=== PATIENT | female | born 1945 | race Caucasian/White ===

== ENCOUNTER 2017-04-12 16:20 | Inpatient (IN) | payer MEDICARE, OTHER ==
[~2017-04-12] VITALS: Ht 162.6 cm; Wt 84.4 kg
[~2017-04-12 16:20] MED LIST: AMLO-512 PO; BENZ1TAB10 PO; CARB-37 PO; FERR-89 PO; FURO20 PO; HALOD50I IM; LEVO75 PO; LOSA100T29 PO; METO50 PO; OMEP20 PO; QUET300T2 PO; VALP250 PO
[2017-04-12 17:17] LABS: GLUCOSE,POINT OF CARE 124 MG/DL (70-110)
[2017-04-12] MEDS ORDERED: SODIUM CHLORIDE 0.9% 1,000 ML IV ONE ×3 (17:30→20:15)
[2017-04-12] MEDS ORDERED: ACETAMINOPHEN 1000 MG/ISO-OSM 100 ML IV ONE (17:30)
[2017-04-12 17:49] LABS: BASOPHILS # (AUTO) 0.09 K/uL (0.00-0.20); BASOPHILS % (AUTO) 0.6 % (0.0-2.0); EOSINOPHILS # (AUTO) 0.01 K/uL (0.00-0.70); EOSINOPHILS % (AUTO) 0.04 % (1.0-6.0); HEMATOCRIT 40.1 % (36-46); LYMPHOCYTES # (AUTO) 1.4 K/uL (1.0-4.8); LYMPHOCYTES % (AUTO) 9.1 % (22.0-44.0); MEAN CORPUSCULAR HEMOGLOBIN 28.9 pg (26.0-34.0); MEAN CORPUSCULAR HGB CONC 32.5 G/dL (31.0-37.0); MEAN CORPUSCULAR VOLUME 89 fL (80-100); MONOCYTES # (AUTO) 1.3 K/uL (0.1-1.0); MONOCYTES % (AUTO) 8.2 % (2.0-9.0); NEUTROPHILS # (AUTO) 12.8 K/uL (1.8-7.7); NEUTROPHILS % (AUTO) 82.1 % (40.0-70.0); PLATELET COUNT (AUTO) 219 K/uL (150-450); RED BLOOD CELL COUNT(AUTO) 4.51 MIL/uL (4.00-5.20); RED CELL DISTRIBUTION WIDTH 15.7 % (11.5-14.5); WHITE BLOOD COUNT (AUTO) 15.6 K/uL (4.5-11.0)
[2017-04-12 17:58] LABS: ANION GAP 11 mmol/L (8-16); CALCIUM, TOTAL 9.4 mg/dL (8.8-10.5); CARBON DIOXIDE 28 mmol/L (22-29); CHLORIDE 98 mmol/L (98-107); CREATININE 1.76 mg/dL (0.60-1.30); GLOMERULAR FILTR. RATE CALC 29 mL/min (>60); POTASSIUM 3.9 mmol/L (3.5-5.1); SODIUM SERUM 137 mmol/L (136-145); UREA NITROGEN, BLOOD 26 mg/dL (7-18)
[2017-04-12 18:01] LABS: PROTHROMBIN TIME 10.7 SEC (9.4-11.6)
[2017-04-12 18:03] LABS: RBC MORPHOLOGY COMMENT NORMAL RBC MORPH
[2017-04-12 18:10] LABS: LACTIC ACID 2.8 mmol/L (0.4-2.0)
[2017-04-12 18:23] LABS: AMMONIA < 10 umol/L (11-32)
[2017-04-12 18:24] LABS: ALANINE AMINOTRANSFERASE 11 U/L (12-78); ALBUMIN 3.1 g/dL (3.4-5.0); ASPARTATE AMINOTRANSFERASE 18 U/L (15-37); BILIRUBIN,TOTAL 0.3 mg/dL (0.1-1.0); CREATINE KINASE MB 5.8 ng/mL (0-5); CREATINE KINASE, TOTAL 152 U/L (26-192); TOTAL PROTEIN, SERUM 7.9 g/dL (6.4-8.2)
[2017-04-12 19:19] LABS: ADD UA MICROSCOPIC YES; APPEARANCE,URINE CLOUDY (CLEAR); GLUCOSE, URINE (UA) NEGATIVE (NEGATIVE); KETONES,URINE NEGATIVE (NEGATIVE); LEUKOCYTE ESTERASE ,URINE MODERATE (NEGATIVE); OCCULT BLOOD,URINE TRACE (NEGATIVE); PROTEIN,URINE TRACE (NEGATIVE)
[2017-04-12 19:26] LABS: SQUAMOUS EPITHELIAL CELL,UR Few /LPF (None Seen)
[2017-04-12 19:44] LABS: REFLEX LACTIC ACID? YES YES
[2017-04-12] MEDS ORDERED: CefTRIAXone 1 GM/DEXTROSE 50 ML IV ONE (19:45)
[2017-04-12] MEDS ORDERED: ONDANSETRON HCL 4 MG/2 ML VIAL IVP PRN (20:15)
[2017-04-12] MEDS ORDERED: ACETAMINOPHEN 325 MG TABLET PO PRN (20:15)
[2017-04-12 21:57] VITALS: BP 144/71
[2017-04-13] MEDS: HEPARIN SODIUM,PORCINE 5,000 UNITS/ML VIAL SQ SCH ×4 (00:17→23:59)
[2017-04-13] MEDS: POTASSIUM CHLORIDE 40 MEQ in SODIUM CHLORIDE 0.9% 1,000 ML IV SCH ×2 (00:18→18:11)
[2017-04-13 01:15] LABS: BILIRUBIN,TOTAL 0.2 mg/dL (0.1-1.0); CALCIUM, TOTAL 7.3 mg/dL (8.8-10.5); CREATININE 1.07 mg/dL (0.60-1.30); TOTAL PROTEIN, SERUM 5.2 g/dL (6.4-8.2)
[2017-04-13 01:19] LABS: POTASSIUM 7.2 mmol/L (3.5-5.1)
[2017-04-13 04:24] VITALS: BP 154/82
[2017-04-13] MEDS: ACETAMINOPHEN 325 MG TABLET PO PRN ×3 (04:44→12:22)
[2017-04-13 07:33] VITALS: BP 145/61
[2017-04-13 11:56] VITALS: BP 139/110
[2017-04-13] MEDS: CefTRIAXone SODIUM 1 GM/VIAL IM SCH (12:22)
[2017-04-13] MEDS: LIDOCAINE HCL/PF 1% 2 ML VIAL IM SCH (12:22)
[2017-04-13 15:59] VITALS: BP 104/70
[2017-04-13 19:29] VITALS: BP 154/73
[2017-04-13] MEDS: ACETAMINOPHEN/CODEINE 300-30 MG TABLET PO PRN (22:30)
[2017-04-14] VITALS (7 sets, daily range): BP systolic 145–166; BP diastolic 67–81
[2017-04-14] MEDS: POTASSIUM CHLORIDE 40 MEQ in SODIUM CHLORIDE 0.9% 1,000 ML IV SCH ×2 (05:22→21:01)
[2017-04-14] MEDS: HEPARIN SODIUM,PORCINE 5,000 UNITS/ML VIAL SQ SCH ×2 (08:04→15:38)
[2017-04-14] MEDS: LIDOCAINE HCL/PF 1% 2 ML VIAL IM SCH (08:05)
[2017-04-14] MEDS: CefTRIAXone SODIUM 1 GM/VIAL IM SCH (08:05)
[2017-04-14] MEDS: ACETAMINOPHEN/CODEINE 300-30 MG TABLET PO PRN (09:19)
[2017-04-14 10:55] LABS: BASOPHILS % (AUTO) 0.2 % (0.0-2.0); EOSINOPHILS % (AUTO) 2.9 % (1.0-6.0); HEMATOCRIT 33.2 % (36-46); HEMOGLOBIN 11.1 g/dL (12.0-16.0); LYMPHOCYTES # (AUTO) 1.8 K/uL (1.0-4.8); LYMPHOCYTES % (AUTO) 20.4 % (22.0-44.0); MEAN CORPUSCULAR HEMOGLOBIN 29.5 pg (26.0-34.0); MEAN CORPUSCULAR HGB CONC 33.5 G/dL (31.0-37.0); MEAN CORPUSCULAR VOLUME 88 fL (80-100); MONOCYTES % (AUTO) 11.1 % (2.0-9.0); NEUTROPHILS # (AUTO) 5.9 K/uL (1.8-7.7); NEUTROPHILS % (AUTO) 65.4 % (40.0-70.0); PLATELET COUNT (AUTO) 225 K/uL (150-450); RED BLOOD CELL COUNT(AUTO) 3.77 MIL/uL (4.00-5.20); RED CELL DISTRIBUTION WIDTH 15.4 % (11.5-14.5)
[2017-04-14 11:02] LABS: CALCIUM, TOTAL 8.7 mg/dL (8.8-10.5); CREATININE 1.07 mg/dL (0.60-1.30); POTASSIUM 4.5 mmol/L (3.5-5.1)
[2017-04-14] MEDS: AmLODIPine BESYLATE 10 MG TABLET PO SCH (11:52)
[2017-04-14] MEDS: ACETAMINOPHEN 325 MG TABLET PO PRN (15:38)
[2017-04-15] MEDS: HEPARIN SODIUM,PORCINE 5,000 UNITS/ML VIAL SQ SCH ×3 (00:57→16:04)
[2017-04-15 04:46] VITALS: BP 142/71
[2017-04-15] MEDS: AmLODIPine BESYLATE 10 MG TABLET PO SCH (08:08)
[2017-04-15] MEDS: CefTRIAXone SODIUM 1 GM/VIAL IM SCH (08:28)
[2017-04-15] MEDS: LIDOCAINE HCL/PF 1% 2 ML VIAL IM SCH (08:28)
[2017-04-15 09:14] VITALS: BP 149/89
[2017-04-15] MEDS: POTASSIUM CHLORIDE 40 MEQ in SODIUM CHLORIDE 0.9% 1,000 ML IV SCH (10:45)
[2017-04-15 11:58] VITALS: BP 161/80
[2017-04-15 12:22] VITALS: BP 155/80
[2017-04-15 17:31] VITALS: BP 136/75
[2017-04-15] MEDS ORDERED: CEFX1I IM (17:40)
[2017-04-15] MEDS ORDERED: ACET-784 PO (17:44)
== END 2017-04-15 19:30 | DRG 871 ==
LOC: EMS 16:23 → 5S 20:21
PROVIDERS: ADMIT Internal Medicine; ATTEND Internal Medicine
DX: A41.9 Sepsis, unspecified organism (principal); N17.0 Acute kidney failure with tubular necrosis; G93.41 Metabolic encephalopathy; E87.2 Acidosis; N39.0 Urinary tract infection, site not specified; E03.9 Hypothyroidism, unspecified; F31.9 Bipolar disorder, unspecified; G20 Parkinson's disease; I12.9 Hypertensive chronic kidney disease with stage 1 through stage 4 chronic kidney disease, or unspecified chronic kidney disease; E86.0 Dehydration; N18.9 Chronic kidney disease, unspecified; W19.XXXA Unspecified fall, initial encounter; E87.5 Hyperkalemia
CPT/HCPCS: 51702; 70450; 72125; 82962; 83605; 84132; 87040; 87086; 93005; 96365; 96375; 99285; J0131; J0696; J1644; J3480; J3490; J7030

== ENCOUNTER 2017-09-10 09:04 | Inpatient (IN) | payer MEDICARE, OTHER ==
[~2017-09-10] VITALS: Ht 160 cm; Wt 85.3 kg
[~2017-09-10 09:04] MED LIST changes: +ACET-784 PO; +CEFX1I IM; -LOSA100T29 PO
[2017-09-10] MEDS ORDERED: HYDROCODONE/ACETAMINOPHEN 5-325 MG TABLET PO ONE (10:30)
[2017-09-10 10:44] LABS: BASOPHILS % (AUTO) 0.1 % (0.0-2.0); EOSINOPHILS % (AUTO) 0 % (1.0-6.0); HEMATOCRIT 35.5 % (36-46); LYMPHOCYTES # (AUTO) 1.1 K/uL (1.0-4.8); LYMPHOCYTES % (AUTO) 11.5 % (22.0-44.0); MEAN CORPUSCULAR HEMOGLOBIN 28.8 pg (26.0-34.0); MEAN CORPUSCULAR HGB CONC 33.8 G/dL (31.0-37.0); MEAN CORPUSCULAR VOLUME 85 fL (80-100); MONOCYTES # (AUTO) 0.4 K/uL (0.1-1.0); MONOCYTES % (AUTO) 4.5 % (2.0-9.0); NEUTROPHILS # (AUTO) 8.1 K/uL (1.8-7.7); NEUTROPHILS % (AUTO) 83.9 % (40.0-70.0); PLATELET COUNT (AUTO) 214 K/uL (150-450); RED BLOOD CELL COUNT(AUTO) 4.17 MIL/uL (4.00-5.20); RED CELL DISTRIBUTION WIDTH 14.5 % (11.5-14.5); WHITE BLOOD COUNT (AUTO) 9.6 K/uL (4.5-11.0)
[2017-09-10 10:50] LABS: APPEARANCE,URINE CLEAR (CLEAR); GLUCOSE, URINE (UA) NEGATIVE (NEGATIVE); KETONES,URINE NEGATIVE (NEGATIVE); LEUKOCYTE ESTERASE ,URINE NEGATIVE (NEGATIVE); OCCULT BLOOD,URINE NEGATIVE (NEGATIVE); PROTEIN,URINE NEGATIVE (NEGATIVE)
[2017-09-10 10:51] LABS: ADD UA MICROSCOPIC NO
[2017-09-10 10:57] LABS: INR 0.9 (0.9-1.1)
[2017-09-10 11:00] LABS: ALBUMIN 3.5 g/dL (3.4-5.0); BILIRUBIN,TOTAL 0.1 mg/dL (0.1-1.0); CALCIUM, TOTAL 9.3 mg/dL (8.8-10.5); CREATININE 1.2 mg/dL (0.60-1.30); POTASSIUM 4.6 mmol/L (3.5-5.1); TOTAL PROTEIN, SERUM 8.1 g/dL (6.4-8.2)
[2017-09-10] MEDS ORDERED: SODIUM CHLORIDE 0.9% 1,000 ML IV ONE ×3 (11:19→11:30)
[2017-09-10 11:23] LABS: THYROID STIMULATING HORMONE 1.86 uIU/mL (0.36-3.74)
[2017-09-10] MEDS ORDERED: MORPHINE SULFATE 2 MG/ML SYRINGE IVP PRN (11:30)
[2017-09-10] MEDS ORDERED: ONDANSETRON HCL 4 MG/2 ML VIAL IVP PRN (11:30)
[2017-09-10] MEDS ORDERED: BISACODYL 10 MG RECTAL RECTAL SUPPOSITORY PR PRN (11:30)
[2017-09-10] MEDS ORDERED: HYDROCODONE/ACETAMINOPHEN 5-325 MG TABLET PO PRN (11:30)
[2017-09-10 13:23] VITALS: BP 116/81
[2017-09-10 13:25] VITALS: BP 132/69
[2017-09-10 16:15] VITALS: BP 128/81
[2017-09-10] MEDS: HEPARIN SODIUM,PORCINE 5,000 UNITS/ML VIAL SQ SCH (16:33)
[2017-09-10] MEDS: DEXTROSE 5%-WATER 1,000 ML IV SCH (16:34)
[2017-09-10 20:13] VITALS: BP 123/53
[2017-09-10] MEDS: METOPROLOL TARTRATE 50 MG TABLET PO SCH (20:27)
[2017-09-10] MEDS: DOCUSATE SODIUM 100 MG CAPSULE PO SCH (20:27)
[2017-09-10] MEDS: CARBIDOPA/LEVODOPA 10-100 MG TABLET PO SCH (20:27)
[2017-09-10 23:38] VITALS: BP 125/65
[2017-09-11] MEDS: HEPARIN SODIUM,PORCINE 5,000 UNITS/ML VIAL SQ SCH ×4 (00:39→23:14)
[2017-09-11 06:17] VITALS: BP 133/64
[2017-09-11] MEDS: LEVOTHYROXINE SODIUM 75 MCG TABLET PO SCH (06:20)
[2017-09-11 06:43] LABS: CALCIUM, TOTAL 8.8 mg/dL (8.8-10.5); CREATININE 1.22 mg/dL (0.60-1.30); PHOSPHORUS 3.6 mg/dL (2.5-4.9); POTASSIUM 4.6 mmol/L (3.5-5.1); THYROID STIMULATING HORMONE 5.58 uIU/mL (0.36-3.74)
[2017-09-11] MEDS: MAGNESIUM HYDROXIDE SUSPENSION 30 ML UDCUP PO PRN (06:52)
[2017-09-11 07:31] VITALS: BP 136/63
[2017-09-11] MEDS: METOPROLOL TARTRATE 50 MG TABLET PO SCH ×2 (08:05→20:06)
[2017-09-11] MEDS: FERROUS SULFATE 325 MG EC TABLET PO SCH (08:05)
[2017-09-11] MEDS: PANTOPRAZOLE SODIUM 40 MG DR TABLET PO SCH (08:05)
[2017-09-11] MEDS: BENZTROPINE MESYLATE 1 MG TABLET PO SCH (08:05)
[2017-09-11] MEDS: DOCUSATE SODIUM 100 MG CAPSULE PO SCH ×2 (08:05→20:01)
[2017-09-11] MEDS: AmLODIPine BESYLATE 10 MG TABLET PO SCH (08:05)
[2017-09-11] MEDS: CARBIDOPA/LEVODOPA 10-100 MG TABLET PO SCH ×3 (08:06→20:01)
[2017-09-11 11:05] VITALS: BP 113/59
[2017-09-11] MEDS: DEXTROSE 5%-WATER 1,000 ML IV SCH (11:34)
[2017-09-11 15:18] VITALS: BP 124/62
[2017-09-11 19:34] VITALS: BP 103/63
[2017-09-11] MEDS: ACETAMINOPHEN 325 MG TABLET PO PRN (22:24)
[2017-09-11 23:22] VITALS: BP 127/61
[2017-09-12 05:16] VITALS: BP 140/69
[2017-09-12] MEDS: LEVOTHYROXINE SODIUM 75 MCG TABLET PO SCH (05:40)
[2017-09-12 06:43] LABS: CALCIUM, TOTAL 9.5 mg/dL (8.8-10.5); CREATININE 1.09 mg/dL (0.60-1.30); PHOSPHORUS 2.7 mg/dL (2.5-4.9); POTASSIUM 4.2 mmol/L (3.5-5.1)
[2017-09-12] MEDS: ACETAMINOPHEN 325 MG TABLET PO PRN ×2 (06:49→20:43)
[2017-09-12 07:20] VITALS: BP 141/69
[2017-09-12] MEDS: FERROUS SULFATE 325 MG EC TABLET PO SCH (08:57)
[2017-09-12] MEDS: DOCUSATE SODIUM 100 MG CAPSULE PO SCH ×2 (08:57→20:43)
[2017-09-12] MEDS: BENZTROPINE MESYLATE 1 MG TABLET PO SCH (08:57)
[2017-09-12] MEDS: PANTOPRAZOLE SODIUM 40 MG DR TABLET PO SCH (08:57)
[2017-09-12] MEDS: CARBIDOPA/LEVODOPA 10-100 MG TABLET PO SCH ×3 (08:57→20:44)
[2017-09-12] MEDS: HEPARIN SODIUM,PORCINE 5,000 UNITS/ML VIAL SQ SCH ×3 (08:57→23:28)
[2017-09-12] MEDS: METOPROLOL TARTRATE 50 MG TABLET PO SCH ×2 (08:57→20:44)
[2017-09-12] MEDS: AmLODIPine BESYLATE 10 MG TABLET PO SCH (08:57)
[2017-09-12] MEDS: DEXTROSE 5%-WATER 1,000 ML IV SCH (08:58)
[2017-09-12 11:05] VITALS: BP 135/72
[2017-09-12 15:16] VITALS: BP 113/64
[2017-09-12] MEDS: MAGNESIUM HYDROXIDE SUSPENSION 30 ML UDCUP PO PRN (16:34)
[2017-09-12 20:52] VITALS: BP 132/65
[2017-09-13 00:17] VITALS: BP 121/56
[2017-09-13 04:37] VITALS: BP 137/63
[2017-09-13] MEDS: LEVOTHYROXINE SODIUM 75 MCG TABLET PO SCH (05:10)
[2017-09-13] MEDS: DEXTROSE 5%-WATER 1,000 ML IV SCH (05:11)
[2017-09-13 07:11] LABS: EOSINOPHILS % (AUTO) 2.5 % (1.0-6.0); HEMATOCRIT 33.6 % (36-46); HEMOGLOBIN 11.1 g/dL (12.0-16.0); LYMPHOCYTES # (AUTO) 2.8 K/uL (1.0-4.8); LYMPHOCYTES % (AUTO) 27.9 % (22.0-44.0); MEAN CORPUSCULAR HEMOGLOBIN 28.8 pg (26.0-34.0); MEAN CORPUSCULAR HGB CONC 33.2 G/dL (31.0-37.0); MEAN CORPUSCULAR VOLUME 87 fL (80-100); MONOCYTES % (AUTO) 9.7 % (2.0-9.0); NEUTROPHILS # (AUTO) 5.8 K/uL (1.8-7.7); NEUTROPHILS % (AUTO) 58.9 % (40.0-70.0); PLATELET COUNT (AUTO) 272 K/uL (150-450); RED BLOOD CELL COUNT(AUTO) 3.87 MIL/uL (4.00-5.20); RED CELL DISTRIBUTION WIDTH 15.5 % (11.5-14.5); WHITE BLOOD COUNT (AUTO) 9.9 K/uL (4.5-11.0)
[2017-09-13 07:41] VITALS: BP 138/69
[2017-09-13] MEDS: DOCUSATE SODIUM 100 MG CAPSULE PO SCH (07:43)
[2017-09-13] MEDS: HEPARIN SODIUM,PORCINE 5,000 UNITS/ML VIAL SQ SCH (07:43)
[2017-09-13] MEDS: AmLODIPine BESYLATE 10 MG TABLET PO SCH (07:43)
[2017-09-13] MEDS: METOPROLOL TARTRATE 50 MG TABLET PO SCH (07:43)
[2017-09-13] MEDS: PANTOPRAZOLE SODIUM 40 MG DR TABLET PO SCH (07:43)
[2017-09-13] MEDS: CARBIDOPA/LEVODOPA 10-100 MG TABLET PO SCH (07:43)
[2017-09-13] MEDS: FERROUS SULFATE 325 MG EC TABLET PO SCH (07:43)
[2017-09-13] MEDS: BENZTROPINE MESYLATE 1 MG TABLET PO SCH (07:43)
[2017-09-13 07:54] LABS: CALCIUM, TOTAL 9.5 mg/dL (8.8-10.5); CREATININE 1.11 mg/dL (0.60-1.30); POTASSIUM 4.8 mmol/L (3.5-5.1)
[2017-09-13 11:47] VITALS: BP 134/64
[2017-09-13 15:14] VITALS: BP 144/60
== END 2017-09-13 15:33 | disposition home or self-care (01) | DRG 643 ==
LOC: EMS 09:05 → 5N 12:51
PROVIDERS: ADMIT Internal Medicine; ATTEND Internal Medicine
DX: E22.2 Syndrome of inappropriate secretion of antidiuretic hormone (principal); G93.41 Metabolic encephalopathy; G20 Parkinson's disease; D64.9 Anemia, unspecified; W01.0XXA Fall on same level from slipping, tripping and stumbling without subsequent striking against object, initial encounter; E03.9 Hypothyroidism, unspecified; I12.9 Hypertensive chronic kidney disease with stage 1 through stage 4 chronic kidney disease, or unspecified chronic kidney disease; I44.30 Unspecified atrioventricular block; N18.9 Chronic kidney disease, unspecified; Z88.8 Allergy status to other drugs, medicaments and biological substances
CPT/HCPCS: 51701; 70450; 72125; 82533; 83735; 83930; 83935; 84100; 84295; 84300; 84439; 84443; 93005; 96360; 96361; 97161; 99285; J1644; J7030; J7060

== ENCOUNTER 2018-07-30 10:53 | Inpatient (IN) | payer MEDICARE, MEDICAID ==
[~2018-07-30] VITALS: Ht 165.1 cm; Wt 77.0 kg
[~2018-07-30 10:53] MED LIST changes: -CEFX1I IM; -HALOD50I IM
[2018-07-30] MEDS ORDERED: LOSA50TA25 PO (10:58)
[2018-07-30 11:45] LABS: BASOPHILS % (AUTO) 0.6 % (0.0-2.0); EOSINOPHILS % (AUTO) 1.5 % (1.0-6.0); HEMATOCRIT 33.5 % (36-46); LYMPHOCYTES # (AUTO) 0.6 K/uL (1.0-4.8); LYMPHOCYTES % (AUTO) 14.5 % (22.0-44.0); MEAN CORPUSCULAR HEMOGLOBIN 27.7 pg (26.0-34.0); MEAN CORPUSCULAR HGB CONC 32.9 G/dL (31.0-37.0); MEAN CORPUSCULAR VOLUME 84 fL (80-100); MONOCYTES # (AUTO) 0.4 K/uL (0.1-1.0); NEUTROPHILS # (AUTO) 3.2 K/uL (1.8-7.7); NEUTROPHILS % (AUTO) 73.4 % (40.0-70.0); PLATELET COUNT (AUTO) 279 K/uL (150-450); RED BLOOD CELL COUNT(AUTO) 3.98 MIL/uL (4.00-5.20)
[2018-07-30 12:08] LABS: ANION GAP 7 mmol/L (8-16); CALCIUM, TOTAL 9.5 mg/dL (8.8-10.5); CARBON DIOXIDE 29 mmol/L (22-29); CHLORIDE 99 mmol/L (98-107); GLOMERULAR FILTR. RATE CALC 55 mL/min (>60); GLUCOSE,RANDOM 97 mg/dL (70-110); POTASSIUM 3.6 mmol/L (3.5-5.1); SODIUM SERUM 135 mmol/L (136-145); UREA NITROGEN, BLOOD 15 mg/dL (7-18)
[2018-07-30 12:12] LABS: ALANINE AMINOTRANSFERASE 15 U/L (12-78); ALBUMIN 3.3 g/dL (3.4-5.0); ALKALINE PHOSPHATASE 66 U/L (46-116); ASPARTATE AMINOTRANSFERASE 15 U/L (15-37); BILIRUBIN,TOTAL 0.3 mg/dL (0.1-1.0); TOTAL PROTEIN, SERUM 7.8 g/dL (6.4-8.2); VALPROIC ACID 88 mcg/mL (50-100)
[2018-07-30 13:28] LABS: APPEARANCE,URINE CLEAR (CLEAR); BILIRUBIN,URINE NEGATIVE (NEGATIVE); GLUCOSE, URINE (UA) NEGATIVE (NEGATIVE); KETONES,URINE NEGATIVE (NEGATIVE); LEUKOCYTE ESTERASE ,URINE SMALL (NEGATIVE); NITRATE,URINE NEGATIVE (NEGATIVE); OCCULT BLOOD,URINE NEGATIVE (NEGATIVE); PROTEIN,URINE NEGATIVE (NEGATIVE); UROBILINOGEN,URINE 0.2 mg/dL (<=1.0)
[2018-07-30 13:34] LABS: AMPHET/METH SCREEN,URINE NEGATIVE (NEGATIVE); BARBITURATE SCREEN, URINE NEGATIVE (NEGATIVE); BENZODIAZEPINES SCREEN,URINE NEGATIVE (NEGATIVE); CANNABINOID SCREEN,URINE NEGATIVE (NEGATIVE); COCAINE SCREEN,URINE NEGATIVE (NEGATIVE); METHADONE SCREEN, URINE NEGATIVE (NEGATIVE); OPIATE SCREEN,URINE NEGATIVE (NEGATIVE); PHENCYCLIDINE SCREEN,URINE NEGATIVE (NEGATIVE)
[2018-07-30 13:39] LABS: BACTERIA,URINE Rare /HPF (None Seen); RBC,URINE None Seen /HPF (0-2); SQUAMOUS EPITHELIAL CELL,UR Rare /LPF (None Seen); WBC,URINE 0-2 /HPF (0-5)
[2018-07-30] MEDS ORDERED: LIDOCAINE/PF 1% 2 ML VIAL IM ONE (15:00)
[2018-07-30] MEDS ORDERED: CefTRIAXone SODIUM 1 GM/VIAL IM ONE (15:00)
[2018-07-30] MEDS ORDERED: HALOPERIDOL DECANOATE 50 MG/ML VIAL IM ONE (16:45)
[2018-07-30] MEDS ORDERED: LORazepam 1 MG TABLET PO PRN (17:45)
[2018-07-30] MEDS ORDERED: ACETAMINOPHEN 325 MG TABLET PO ONE (20:00)
[2018-07-30] MEDS ORDERED: DOCUSATE SODIUM 100 MG CAPSULE PO PRN (23:30)
[2018-07-30] MEDS ORDERED: PETROLATUM,WHITE 71 GM JELLY TP PRN (23:30)
[2018-07-30] MEDS ORDERED: ONDANSETRON HCL 4 MG TABLET PO PRN (23:30)
[2018-07-30] MEDS ORDERED: LOPERAMIDE HCL 2 MG CAPSULE PO PRN (23:30)
[2018-07-30] MEDS ORDERED: MAG HYDROX/AL HYDROX/SIMETH ES 30 ML SUSPENSION UDCUP PO PRN (23:30)
[2018-07-30] MEDS ORDERED: ALBUTEROL SULFATE HFA 90 MCG/PUFF 8 GM INHALER IH PRN (23:30)
[2018-07-30] MEDS ORDERED: CloNIDine HCL 0.1 MG TABLET PO PRN (23:30)
[2018-07-30] MEDS ORDERED: GuaiFENesin/D-METHORPHAN [SUGAR-FREE] 200-20MG/10 ML SYRUP UDCUP PO PRN (23:30)
[2018-07-30] MEDS ORDERED: MAGNESIUM HYDROXIDE SUSPENSION 30 ML UDCUP PO PRN (23:30)
[2018-07-31 03:49] VITALS: BP 141/96
[2018-07-31 09:02] VITALS: BP 133/67
[2018-07-31] MEDS: IBUPROFEN 400 MG TABLET PO PRN (09:04)
[2018-07-31] MEDS: QUEtiapine FUMARATE 100 MG TABLET PO PRN (10:40)
[2018-07-31] MEDS: HALOPERIDOL 5 MG TABLET PO SCH (17:01)
[2018-07-31] MEDS: METOPROLOL TARTRATE 50 MG TABLET PO SCH (17:01)
[2018-07-31 17:30] VITALS: BP 135/73
[2018-07-31] MEDS: CARBIDOPA/LEVODOPA 10-100 MG TABLET PO SCH (21:18)
[2018-08-01 05:13] VITALS: BP 107/76
[2018-08-01 06:39] LABS: HEMOGLOBIN A1C 5.3 % (4.5-6.2)
[2018-08-01] MEDS: LEVOTHYROXINE SODIUM 75 MCG TABLET PO SCH (07:11)
[2018-08-01] MEDS: FERROUS SULFATE 325 MG EC TABLET PO SCH (07:12)
[2018-08-01 07:18] LABS: CHOL/HDL RATIO 2.5 (3.9-5.7); THYROID STIMULATING HORMONE 3.07 uIU/mL (0.36-3.74)
[2018-08-01 08:19] VITALS: BP 141/63
[2018-08-01] MEDS: CARBIDOPA/LEVODOPA 10-100 MG TABLET PO SCH ×3 (08:30→17:24)
[2018-08-01] MEDS: METOPROLOL TARTRATE 50 MG TABLET PO SCH ×2 (08:30→17:24)
[2018-08-01] MEDS: FUROSEMIDE 20 MG TABLET PO SCH (08:30)
[2018-08-01] MEDS: AmLODIPine BESYLATE 10 MG TABLET PO SCH (08:32)
[2018-08-01] MEDS: LOSARTAN POTASSIUM 50 MG TABLET PO SCH (08:32)
[2018-08-01] MEDS: HALOPERIDOL 5 MG TABLET PO SCH ×2 (08:33→17:24)
[2018-08-01] MEDS: OMEPRAZOLE 20 MG CAPSULE PO SCH (08:36)
[2018-08-01 16:08] VITALS: BP 137/77
[2018-08-01] MEDS: QUEtiapine FUMARATE 100 MG TABLET PO PRN (22:38)
[2018-08-02] MEDS: FERROUS SULFATE 325 MG EC TABLET PO SCH (06:34)
[2018-08-02] MEDS: LEVOTHYROXINE SODIUM 75 MCG TABLET PO SCH (06:34)
[2018-08-02] MEDS: FUROSEMIDE 20 MG TABLET PO SCH (08:23)
[2018-08-02] MEDS: AmLODIPine BESYLATE 10 MG TABLET PO SCH (08:24)
[2018-08-02] MEDS: LOSARTAN POTASSIUM 50 MG TABLET PO SCH (08:24)
[2018-08-02] MEDS: HALOPERIDOL 5 MG TABLET PO SCH ×2 (08:24→16:57)
[2018-08-02] MEDS: OMEPRAZOLE 20 MG CAPSULE PO SCH (08:24)
[2018-08-02] MEDS: METOPROLOL TARTRATE 50 MG TABLET PO SCH ×2 (08:24→16:57)
[2018-08-02] MEDS: CARBIDOPA/LEVODOPA 10-100 MG TABLET PO SCH ×3 (08:24→16:57)
[2018-08-02 08:30] VITALS: BP 118/95
[2018-08-02] MEDS: QUEtiapine FUMARATE 100 MG TABLET PO PRN (21:11)
[2018-08-02 22:35] VITALS: BP 120/80
[2018-08-03] MEDS: IBUPROFEN 400 MG TABLET PO PRN (05:06)
[2018-08-03 05:08] VITALS: BP 114/68
[2018-08-03] MEDS: LEVOTHYROXINE SODIUM 75 MCG TABLET PO SCH (06:43)
[2018-08-03] MEDS: FERROUS SULFATE 325 MG EC TABLET PO SCH (06:43)
[2018-08-03 08:49] VITALS: BP 140/76
[2018-08-03] MEDS: OMEPRAZOLE 20 MG CAPSULE PO SCH (09:05)
[2018-08-03] MEDS: HALOPERIDOL 5 MG TABLET PO SCH ×2 (09:06→16:59)
[2018-08-03] MEDS: AmLODIPine BESYLATE 10 MG TABLET PO SCH (09:06)
[2018-08-03] MEDS: LOSARTAN POTASSIUM 50 MG TABLET PO SCH (09:06)
[2018-08-03] MEDS: METOPROLOL TARTRATE 50 MG TABLET PO SCH ×2 (09:06→16:59)
[2018-08-03] MEDS: CARBIDOPA/LEVODOPA 10-100 MG TABLET PO SCH ×3 (09:06→17:00)
[2018-08-03] MEDS: FUROSEMIDE 20 MG TABLET PO SCH (09:06)
[2018-08-03 16:10] VITALS: BP 142/72
[2018-08-03 16:13] VITALS: BP 142/72
[2018-08-03] MEDS: QUEtiapine FUMARATE 100 MG TABLET PO PRN (21:33)
[2018-08-03] MEDS: ACETAMINOPHEN 325 MG TABLET PO PRN (22:15)
[2018-08-04] MEDS: LEVOTHYROXINE SODIUM 75 MCG TABLET PO SCH (06:56)
[2018-08-04] MEDS: FERROUS SULFATE 325 MG EC TABLET PO SCH (06:56)
[2018-08-04 08:15] VITALS: BP 136/80
[2018-08-04] MEDS: METOPROLOL TARTRATE 50 MG TABLET PO SCH ×2 (08:16→16:27)
[2018-08-04] MEDS: CARBIDOPA/LEVODOPA 10-100 MG TABLET PO SCH ×3 (08:16→16:27)
[2018-08-04] MEDS: FOLIC ACID 1 MG TABLET PO SCH (08:16)
[2018-08-04] MEDS: LOSARTAN POTASSIUM 50 MG TABLET PO SCH (08:16)
[2018-08-04] MEDS: FUROSEMIDE 20 MG TABLET PO SCH (08:17)
[2018-08-04] MEDS: QUEtiapine FUMARATE 100 MG TABLET PO PRN ×2 (08:19→20:00)
[2018-08-04] MEDS: AmLODIPine BESYLATE 10 MG TABLET PO SCH (08:19)
[2018-08-04] MEDS: HALOPERIDOL 5 MG TABLET PO SCH ×2 (08:19→16:27)
[2018-08-04] MEDS: OMEPRAZOLE 20 MG CAPSULE PO SCH (08:19)
[2018-08-04] MEDS: ACETAMINOPHEN 325 MG TABLET PO PRN ×2 (11:46→19:04)
[2018-08-04 16:35] VITALS: BP 133/72
[2018-08-05] MEDS: ACETAMINOPHEN 325 MG TABLET PO PRN (04:42)
[2018-08-05 04:44] VITALS: BP 144/58
[2018-08-05] MEDS: LEVOTHYROXINE SODIUM 75 MCG TABLET PO SCH (06:29)
[2018-08-05] MEDS: FERROUS SULFATE 325 MG EC TABLET PO SCH (06:29)
[2018-08-05 08:00] VITALS: BP 123/68
[2018-08-05] MEDS: CARBIDOPA/LEVODOPA 10-100 MG TABLET PO SCH (08:34)
[2018-08-05] MEDS: HALOPERIDOL 5 MG TABLET PO SCH (08:35)
[2018-08-05] MEDS: FOLIC ACID 1 MG TABLET PO SCH (08:35)
[2018-08-05] MEDS: AmLODIPine BESYLATE 10 MG TABLET PO SCH (08:35)
[2018-08-05] MEDS: OMEPRAZOLE 20 MG CAPSULE PO SCH (08:36)
[2018-08-05] MEDS: FUROSEMIDE 20 MG TABLET PO SCH (08:36)
[2018-08-05] MEDS: METOPROLOL TARTRATE 50 MG TABLET PO SCH (08:36)
[2018-08-05] MEDS: LOSARTAN POTASSIUM 50 MG TABLET PO SCH (08:36)
[2018-08-05] MEDS ORDERED: HALO5TAB2 PO (09:51)
[2018-08-05] MEDS ORDERED: FOLI1 PO (09:53)
== END 2018-08-05 11:00 | disposition home or self-care (01) | DRG 885 ==
LOC: EMS 10:54 → 3EX 18:03
PROVIDERS: ADMIT Psychiatry & Neurology Psychiatry; ATTEND Psychiatry & Neurology Psychiatry
DX: F31.2 Bipolar disorder, current episode manic severe with psychotic features (principal); I11.0 Hypertensive heart disease with heart failure; E87.1 Hypo-osmolality and hyponatremia; N39.0 Urinary tract infection, site not specified; D64.9 Anemia, unspecified; D72.819 Decreased white blood cell count, unspecified; E03.9 Hypothyroidism, unspecified; F41.9 Anxiety disorder, unspecified; G20 Parkinson's disease; G47.00 Insomnia, unspecified; I50.9 Heart failure, unspecified; K21.9 Gastro-esophageal reflux disease without esophagitis; Z23 Encounter for immunization; Z88.8 Allergy status to other drugs, medicaments and biological substances; Z79.899 Other long term (current) drug therapy
CPT/HCPCS: 70450; 83036; 84443; 90686; 99285; G0480; J0696; J1631; J3490

== ENCOUNTER 2024-07-22 20:28 | Inpatient (IN) | payer MEDICARE, MEDICAID ==
[~2024-07-22] VITALS: Ht 157.5 cm; Wt 65.0 kg
[~2024-07-22 20:28] MED LIST changes: -ACET-784 PO; -AMLO-512 PO; +AMLO5TAB66 PO; -BENZ1TAB10 PO; -CARB-37 PO; +CEPH-558 PO; -FERR-89 PO; -FURO20 PO; +LEVO25TA9 PO; -LEVO75 PO; +LINA145C PO; -METO50 PO; -OMEP20 PO; +PALI3TAB14 PO; -QUET300T2 PO; -VALP250 PO
[2024-07-22 21:02] LABS: BASOPHILS % (AUTO) 0.6 % (0.0-2.0); EOSINOPHILS % (AUTO) 2.3 % (1.0-6.0); HEMOGLOBIN 10.1 g/dL (12.0-16.0); LYMPHOCYTES # (AUTO) 1.1 K/uL (1.0-4.8); LYMPHOCYTES % (AUTO) 34.7 % (22.0-44.0); MEAN CORPUSCULAR HEMOGLOBIN 27.8 pg (26.0-34.0); MEAN CORPUSCULAR HGB CONC 32.6 G/dL (31.0-37.0); MEAN CORPUSCULAR VOLUME 85 fL (80-100); MONOCYTES # (AUTO) 0.4 K/uL (0.1-1.0); MONOCYTES % (AUTO) 13.1 % (2.0-9.0); NEUTROPHILS # (AUTO) 1.6 K/uL (1.8-7.7); NEUTROPHILS % (AUTO) 49.3 % (40.0-70.0); PLATELET COUNT (AUTO) 211 K/uL (150-450); RED BLOOD CELL COUNT(AUTO) 3.64 MIL/uL (4.00-5.20); RED CELL DISTRIBUTION WIDTH 16.6 % (11.5-14.5); WHITE BLOOD COUNT (AUTO) 3.2 K/uL (4.5-11.0)
[2024-07-22 21:18] LABS: ANION GAP 7 mmol/L (8-16); CALCIUM, TOTAL 8.5 mg/dL (8.8-10.5); CARBON DIOXIDE 29 mmol/L (22-29); CHLORIDE 98 mmol/L (98-107); CREATININE 0.92 mg/dL (0.60-1.30); GLOMERULAR FILTR. RATE CALC 59 mL/min (>60); GLUCOSE,RANDOM 105 mg/dL (70-110); POTASSIUM 5.1 mmol/L (3.5-5.1); SODIUM SERUM 134 mmol/L (136-145); UREA NITROGEN, BLOOD 38 mg/dL (7-18)
[2024-07-22 21:23] LABS: ALANINE AMINOTRANSFERASE 14 U/L (12-78); ALBUMIN 2.7 g/dL (3.4-5.0); ALKALINE PHOSPHATASE 87 U/L (46-116); ASPARTATE AMINOTRANSFERASE 20 U/L (15-37); BILIRUBIN,TOTAL 0.1 mg/dL (0.1-1.0); TOTAL PROTEIN, SERUM 6.5 g/dL (6.4-8.2)
[2024-07-22 21:26] LABS: LACTIC ACID 1.2 mmol/L (0.4-2.0)
[2024-07-22 21:27] LABS: TROPONIN I-HIGH SENSITIVITY 7 ng/L (<51)
[2024-07-22 21:36] LABS: AMMONIA 7 umol/L (11-32)
[2024-07-22] MEDS: ACETAMINOPHEN 500 MG TABLET PO ONE (22:54)
[2024-07-23] MEDS: LORazepam 2 MG/ML VIAL IVP ONE ×2 (00:40→11:08)
[2024-07-23] MEDS: HALOPERIDOL LACTATE 5 MG/ML VIAL IVP ONE ×2 (00:40→11:09)
[2024-07-23 02:40] LABS: COVID AG,FIA SOURCE NASAL SWAB
[2024-07-23 02:46] LABS: SARS-COV2 (COVID) ANTIGEN,FIA Negative (Negative)
[2024-07-23] MEDS ORDERED: BENZ-247 PO (11:13)
[2024-07-23] MEDS ORDERED: VITA113O4 TP (11:13)
[2024-07-23] MEDS ORDERED: DOCU-412 PO (11:13)
[2024-07-23] MEDS ORDERED: MULT1TAB67 PO (11:13)
[2024-07-23] MEDS ORDERED: LEVO175T4 PO (11:13)
[2024-07-23] MEDS ORDERED: HALO50VI29 IM (11:13)
[2024-07-23] MEDS ORDERED: DIVA-112 PO (11:13)
[2024-07-23] MEDS ORDERED: QUET200T PO (11:13)
[2024-07-23] MEDS: ACETAMINOPHEN 500 MG TABLET PO ONE (12:37)
[2024-07-23] MEDS ORDERED: ZOLPIDEM TARTRATE 10 MG TABLET PO PRN (14:15)
[2024-07-23] MEDS: LORazepam 2 MG TABLET PO PRN (14:24)
[2024-07-23] MEDS: HALOPERIDOL 5 MG TABLET PO PRN (14:24)
[2024-07-24 08:09] LABS: BASOPHILS % (AUTO) 0.9 % (0.0-2.0); EOSINOPHILS % (AUTO) 2.6 % (1.0-6.0); HEMATOCRIT 30.9 % (36-46); LYMPHOCYTES # (AUTO) 0.8 K/uL (1.0-4.8); LYMPHOCYTES % (AUTO) 27.5 % (22.0-44.0); MEAN CORPUSCULAR HEMOGLOBIN 27.7 pg (26.0-34.0); MEAN CORPUSCULAR HGB CONC 32.4 G/dL (31.0-37.0); MEAN CORPUSCULAR VOLUME 86 fL (80-100); MONOCYTES # (AUTO) 0.4 K/uL (0.1-1.0); MONOCYTES % (AUTO) 13.9 % (2.0-9.0); NEUTROPHILS # (AUTO) 1.5 K/uL (1.8-7.7); NEUTROPHILS % (AUTO) 55.1 % (40.0-70.0); PLATELET COUNT (AUTO) 213 K/uL (150-450); RED BLOOD CELL COUNT(AUTO) 3.62 MIL/uL (4.00-5.20); RED CELL DISTRIBUTION WIDTH 17.1 % (11.5-14.5); WHITE BLOOD COUNT (AUTO) 2.7 K/uL (4.5-11.0)
[2024-07-24 08:16] LABS: ANION GAP 6 mmol/L (8-16); CALCIUM, TOTAL 8.7 mg/dL (8.8-10.5); CARBON DIOXIDE 28 mmol/L (22-29); CHLORIDE 103 mmol/L (98-107); CREATININE 0.67 mg/dL (0.60-1.30); GLOMERULAR FILTR. RATE CALC > 60 mL/min (>60); GLUCOSE,RANDOM 87 mg/dL (70-110); POTASSIUM 4.6 mmol/L (3.5-5.1); SODIUM SERUM 137 mmol/L (136-145); UREA NITROGEN, BLOOD 30 mg/dL (7-18)
[2024-07-24] MEDS: ACETAMINOPHEN 500 MG TABLET PO ONE (13:14)
[2024-07-24] MEDS: ChlorproMAZINE HCL 50 MG/2 ML AMP IM ONE ×2 (14:58→14:59)
[2024-07-24 17:45] LABS: APPEARANCE,URINE HAZY (CLEAR); BILIRUBIN,URINE NEGATIVE (NEGATIVE); COLOR,URINE YELLOW (YELLOW); GLUCOSE, URINE (UA) NEGATIVE (NEGATIVE); KETONES,URINE NEGATIVE (NEGATIVE); LEUKOCYTE ESTERASE ,URINE LARGE (NEGATIVE); NITRATE,URINE POSITIVE (NEGATIVE); OCCULT BLOOD,URINE SMALL (NEGATIVE); PH,URINE 6.5 (5.0-8.0); PH,URINE DRUG SCREEN 6.5 (5.0-8.0); PROTEIN,URINE TRACE mg/dL (NEGATIVE); SPECIFIC GRAVITIY, URINE 1.012 (1.003-1.030); UROBILINOGEN,URINE <=1.0 mg/dL (<=1.0)
[2024-07-24 17:50] LABS: ALCOHOL, URINE DRUG SCREEN NEGATIVE (NEGATIVE); AMPHET/METH SCREEN,URINE NEGATIVE (NEGATIVE); BARBITURATE SCREEN, URINE NEGATIVE (NEGATIVE); BENZODIAZEPINES SCREEN,URINE NEGATIVE (NEGATIVE); CANNABINOID SCREEN,URINE NEGATIVE (NEGATIVE); COCAINE SCREEN,URINE NEGATIVE (NEGATIVE); METHADONE SCREEN, URINE NEGATIVE (NEGATIVE); OPIATE SCREEN,URINE NEGATIVE (NEGATIVE); PHENCYCLIDINE SCREEN,URINE NEGATIVE (NEGATIVE)
[2024-07-24] MEDS: CefTRIAXone 1 GM/DEXTROSE 50 ML IV ONE (18:34)
[2024-07-24 18:38] LABS: BACTERIA,URINE Many /HPF (None Seen); SQUAMOUS EPITHELIAL CELL,UR Few /LPF (None Seen); WBC,URINE 51-100 /HPF (0-5)
[2024-07-25] MEDS: ACETAMINOPHEN 325 MG TABLET PO ONE (16:49)
[2024-07-25 18:56] VITALS: BP 154/63; PULSE 91; RESP 18; TEMP 98.9; O2SAT 93
[2024-07-25 21:54] VITALS: BP 141/63; PULSE 85; RESP 18; TEMP 98.3; O2SAT 97
[2024-07-26 08:04] VITALS: BP 167/71; PULSE 76; RESP 17; TEMP 98.2; O2SAT 96
[2024-07-26] MEDS ORDERED: MAG HYDROX/ALUMINUM HYD/SIMETH ES 30 ML SUSPENSION UDCUP PO PRN (09:15)
[2024-07-26] MEDS ORDERED: ALBUTEROL SULFATE HFA 90 MCG/PUFF 8 GM INHALER IH PRN (09:15)
[2024-07-26] MEDS ORDERED: NICOTINE 14 MG/24 HOUR PATCH TD PRN (09:15)
[2024-07-26] MEDS ORDERED: LOPERAMIDE HCL 2 MG CAPSULE PO PRN (09:15)
[2024-07-26] MEDS ORDERED: MAGNESIUM HYDROXIDE SUSPENSION 30 ML UDCUP PO PRN (09:15)
[2024-07-26] MEDS ORDERED: PETROLATUM,WHITE 28 GM JELLY TP PRN (09:15)
[2024-07-26] MEDS ORDERED: DOCUSATE SODIUM 100 MG CAPSULE PO PRN (09:15)
[2024-07-26] MEDS ORDERED: ONDANSETRON 4 MG TABLET PO PRN (09:15)
[2024-07-26] MEDS ORDERED: GuaiFENesin/D-METHORPHAN [SUGAR-FREE] 200-20MG/10 ML SYRUP UDCUP PO PRN (09:15)
[2024-07-26] MEDS ORDERED: CloNIDine HCL 0.1 MG TABLET PO PRN (09:15)
[2024-07-26] MEDS: AmLODIPine BESYLATE 5 MG TABLET PO SCH (09:26)
[2024-07-26] MEDS: CEPHALEXIN MONOHYDRATE 500 MG CAPSULE PO SCH (12:30)
[2024-07-26] MEDS: DIVALPROEX SODIUM 500 MG DR TABLET PO SCH (17:38)
[2024-07-26] MEDS: BENZTROPINE MESYLATE 1 MG TABLET PO SCH (17:38)
[2024-07-26 20:26] VITALS: BP 149/56; PULSE 76; RESP 18; TEMP 97.7; O2SAT 95
[2024-07-26] MEDS: QUEtiapine FUMARATE 300 MG TABLET PO SCH (21:34)
[2024-07-27] MEDS: LEVOTHYROXINE SODIUM 50 MCG TABLET PO SCH (06:53)
[2024-07-27] MEDS: LINACLOTIDE 145 MCG CAPSULE PO SCH (06:53)
[2024-07-27 07:18] LABS: BASOPHILS % (AUTO) 0.8 % (0.0-2.0); EOSINOPHILS % (AUTO) 2.3 % (1.0-6.0); HEMATOCRIT 32.4 % (36-46); HEMOGLOBIN 10.6 g/dL (12.0-16.0); LYMPHOCYTES # (AUTO) 0.9 K/uL (1.0-4.8); MEAN CORPUSCULAR HEMOGLOBIN 27.9 pg (26.0-34.0); MEAN CORPUSCULAR HGB CONC 32.6 G/dL (31.0-37.0); MEAN CORPUSCULAR VOLUME 86 fL (80-100); MONOCYTES # (AUTO) 0.4 K/uL (0.1-1.0); MONOCYTES % (AUTO) 12.3 % (2.0-9.0); NEUTROPHILS # (AUTO) 1.9 K/uL (1.8-7.7); NEUTROPHILS % (AUTO) 56.6 % (40.0-70.0); PLATELET COUNT (AUTO) 219 K/uL (150-450); RED BLOOD CELL COUNT(AUTO) 3.79 MIL/uL (4.00-5.20); RED CELL DISTRIBUTION WIDTH 17.1 % (11.5-14.5); WHITE BLOOD COUNT (AUTO) 3.3 K/uL (4.5-11.0)
[2024-07-27 07:32] LABS: HEMOGLOBIN A1C 5.4 % (3.8-5.6)
[2024-07-27 07:45] LABS: ALANINE AMINOTRANSFERASE 29 U/L (12-78); ALBUMIN 2.4 g/dL (3.4-5.0); ALKALINE PHOSPHATASE 87 U/L (46-116); ANION GAP 7 mmol/L (8-16); ASPARTATE AMINOTRANSFERASE 34 U/L (15-37); BILIRUBIN,TOTAL 0.2 mg/dL (0.1-1.0); CALCIUM, TOTAL 8.9 mg/dL (8.8-10.5); CARBON DIOXIDE 28 mmol/L (22-29); CHLORIDE 103 mmol/L (98-107); CREATININE 0.68 mg/dL (0.60-1.30); GLOMERULAR FILTR. RATE CALC > 60 mL/min (>60); GLUCOSE,RANDOM 82 mg/dL (70-110); POTASSIUM 4.4 mmol/L (3.5-5.1); SODIUM SERUM 138 mmol/L (136-145); THYROID STIMULATING HORMONE 8.08 uIU/mL (0.36-3.74); TOTAL PROTEIN, SERUM 6.2 g/dL (6.4-8.2); UREA NITROGEN, BLOOD 25 mg/dL (7-18)
[2024-07-27 08:04] LABS: CHOLESTEROL 190 mg/dL (131-200); HDL CHOLESTEROL 64 mg/dL (40-60); LDL CHOL (CALC.) 90 mg/dL (0-130); TRIGLYCERIDES 182 mg/dL (15-150)
[2024-07-27 08:20] VITALS: BP 137/63; PULSE 73; RESP 18; TEMP 98.3; O2SAT 96
[2024-07-27] MEDS: MULTIVITAMINS, THERAPEUTIC TABLET PO SCH (10:29)
[2024-07-27 20:22] VITALS: BP 132/72; PULSE 76; RESP 18; TEMP 97; O2SAT 98
[2024-07-28 08:05] VITALS: BP 145/59; PULSE 69; RESP 18; TEMP 97.2; O2SAT 95
[2024-07-28] MEDS: IBUPROFEN 400 MG TABLET PO PRN (12:56)
[2024-07-28] MEDS: ACETAMINOPHEN 325 MG TABLET PO PRN (16:56)
[2024-07-28 21:13] VITALS: BP 121/49; PULSE 88; RESP 18; TEMP 98.1
[2024-07-29 08:55] VITALS: BP 127/55; PULSE 72; RESP 18; TEMP 97.5
[2024-07-29 09:40] VITALS: BP 127/55; PULSE 72; RESP 19; TEMP 97.6
[2024-07-29 13:47] VITALS: BP 135/65; PULSE 75; RESP 18; TEMP 98
[2024-07-29 21:04] VITALS: BP 134/52; PULSE 78; RESP 18; TEMP 97.9
[2024-07-30 08:56] VITALS: BP 155/60; PULSE 85; RESP 19; TEMP 97.5; O2SAT 98
[2024-07-30 09:27] VITALS: BP 111/64; PULSE 85; RESP 17; TEMP 97.2; O2SAT 96
[2024-07-30 10:27] VITALS: BP 138/79; PULSE 76; RESP 17; TEMP 98
[2024-07-30 21:29] VITALS: BP 133/49; PULSE 92; RESP 18; TEMP 97.5; O2SAT 97
[2024-07-30 22:30] VITALS: BP 124/73; PULSE 87; RESP 18; TEMP 97.7; O2SAT 98
[2024-07-30 23:30] VITALS: TEMP 97.6
[2024-07-31 06:10] LABS: GLUCOMETER DEV NAME(LOC) 3E.I 2; GLUCOSE,POINT OF CARE 73 MG/DL (70-110)
[2024-07-31 09:07] VITALS: BP 159/61; PULSE 56; RESP 19; TEMP 97.5; O2SAT 98
[2024-07-31 10:17] VITALS: BP 158/64; PULSE 66; RESP 20; TEMP 98; O2SAT 96
[2024-07-31 20:22] VITALS: BP_SYST 104; BP_SYST 132; BP_DIAS 73; BP_DIAS 77; PULSE 72; PULSE 83; RESP 18; TEMP 98.1; O2SAT 98
[2024-08-01 10:34] VITALS: BP 135/48; PULSE 77; RESP 18; TEMP 97.7; O2SAT 95
[2024-08-01] MEDS ORDERED: AMLO-257 PO (19:25)
[2024-08-01] MEDS ORDERED: QUET300T19 PO (19:25)
[2024-08-01] MEDS ORDERED: LINA145C PO (19:25)
[2024-08-01] MEDS ORDERED: BENZ-247 PO (19:25)
[2024-08-01] MEDS ORDERED: LEVO50 PO (19:25)
[2024-08-01] MEDS ORDERED: DIVA-112 PO (19:25)
[2024-08-01 20:20] VITALS: BP 129/76; RESP 18
[2024-08-01 22:25] VITALS: BP 130/78; PULSE 78; RESP 18; TEMP 97; O2SAT 97
[2024-08-01 23:28] VITALS: RESP 18
[2024-08-02 09:45] VITALS: BP 141/60; PULSE 68; RESP 18; TEMP 97.7; O2SAT 98
== END 2024-08-02 10:55 | disposition home or self-care (01) | DRG 885 ==
LOC: EMS 20:28 → 3EX 07-25 17:40
PROVIDERS: ADMIT Psychiatry & Neurology Psychiatry; ATTEND Psychiatry & Neurology Psychiatry
PROC: GZ52ZZZ Individual Psychotherapy, Cognitive (ICD-10-PCS; principal; 2024-07-27)
PROC: GZHZZZZ Group Psychotherapy (ICD-10-PCS; 2024-07-27)
PROC: GZ56ZZZ Individual Psychotherapy, Supportive (ICD-10-PCS; 2024-07-27)
DX: F31.5 Bipolar disorder, current episode depressed, severe, with psychotic features (principal); E44.0 Moderate protein-calorie malnutrition; N39.0 Urinary tract infection, site not specified; F02.818 Dementia in other diseases classified elsewhere, unspecified severity, with other behavioral disturbance; F03.911 Unspecified dementia, unspecified severity, with agitation; Z68.26 Body mass index [BMI] 26.0-26.9, adult; G20.A1 Parkinson's disease without dyskinesia, without mention of fluctuations; Z20.822 Contact with and (suspected) exposure to COVID-19; I10 Essential (primary) hypertension; E03.9 Hypothyroidism, unspecified; J44.9 Chronic obstructive pulmonary disease, unspecified; E55.9 Vitamin D deficiency, unspecified; F02.80 Dementia in other diseases classified elsewhere, unspecified severity, without behavioral disturbance, psychotic disturbance, mood disturbance, and anxiety; K21.9 Gastro-esophageal reflux disease without esophagitis; F41.9 Anxiety disorder, unspecified; F94.0 Selective mutism; Z79.899 Other long term (current) drug therapy; Z90.710 Acquired absence of both cervix and uterus; Z88.8 Allergy status to other drugs, medicaments and biological substances; Z87.891 Personal history of nicotine dependence
CPT/HCPCS: 70450; 80048; 80053; 80061; 80164; 80307; 81001; 82140; 82962; 83036; 83605; 84443; 84484; 85025; 87040; 87086; 87186; 93005; 96365; 96372; 96375; 96376; 99285; G0378; J1630; J2060

== ENCOUNTER 2024-11-08 17:08 | Inpatient (IN) | payer MEDICARE, MEDICAID ==
[~2024-11-08] VITALS: Ht 172.7 cm; Wt 73.7 kg
[~2024-11-08 17:08] MED LIST changes: +AMLO-257 PO; -AMLO5TAB66 PO; +BENZ-247 PO; -CEPH-558 PO; +DIVA-112 PO; -LEVO25TA9 PO; +LEVO50 PO; -PALI3TAB14 PO; +QUET300T19 PO
[2024-11-08 18:51] LABS: COVID AG,FIA SOURCE NASAL SWAB
[2024-11-08 19:17] LABS: SARS-COV2 (COVID) ANTIGEN,FIA Negative (Negative)
[2024-11-08 19:29] LABS: INFLUENZA TYPE A NEGATIVE FOR TYPE A (NEGATIVE); INFLUENZA TYPE B NEGATIVE FOR TYPE B (NEGATIVE)
[2024-11-08 20:45] LABS: BASOPHILS % (AUTO) 0.3 % (0.0-2.0); EOSINOPHILS % (AUTO) 0.5 % (1.0-6.0); HEMATOCRIT 41.2 % (36-46); HEMOGLOBIN 13.6 g/dL (12.0-16.0); LYMPHOCYTES % (AUTO) 17.2 % (22.0-44.0); MEAN CORPUSCULAR HEMOGLOBIN 28.8 pg (26.0-34.0); MEAN CORPUSCULAR VOLUME 87 fL (80-100); MONOCYTES # (AUTO) 0.4 K/uL (0.1-1.0); MONOCYTES % (AUTO) 6.4 % (2.0-9.0); NEUTROPHILS # (AUTO) 4.4 K/uL (1.8-7.7); NEUTROPHILS % (AUTO) 75.6 % (40.0-70.0); PLATELET COUNT (AUTO) 185 K/uL (150-450); RED BLOOD CELL COUNT(AUTO) 4.73 MIL/uL (4.00-5.20); RED CELL DISTRIBUTION WIDTH 14.4 % (11.5-14.5); WHITE BLOOD COUNT (AUTO) 5.9 K/uL (4.5-11.0)
[2024-11-08 20:55] LABS: ALCOHOL, BLOOD (SERUM) < 3 mg/dL (0-10)
[2024-11-08 21:03] LABS: ANION GAP 10 mmol/L (8-16); CALCIUM, TOTAL 9.9 mg/dL (8.8-10.5); CARBON DIOXIDE 29 mmol/L (22-29); CHLORIDE 95 mmol/L (98-107); CREATININE 0.91 mg/dL (0.60-1.30); GLOMERULAR FILTR. RATE CALC 60 mL/min (>60); GLUCOSE,RANDOM 96 mg/dL (70-110); POTASSIUM 4.5 mmol/L (3.5-5.1); SODIUM SERUM 134 mmol/L (136-145); UREA NITROGEN, BLOOD 31 mg/dL (7-18)
[2024-11-08] MEDS: AmLODIPine BESYLATE 5 MG TABLET PO ONE (22:14)
[2024-11-08] MEDS: QUEtiapine FUMARATE 100 MG TABLET PO ONE (22:15)
[2024-11-09] MEDS ORDERED: LORazepam 2 MG TABLET PO PRN (01:45)
[2024-11-09] MEDS ORDERED: HALOPERIDOL 5 MG TABLET PO PRN (01:45)
[2024-11-09] MEDS ORDERED: ZOLPIDEM TARTRATE 10 MG TABLET PO PRN (01:45)
[2024-11-09 06:32] LABS: APPEARANCE,URINE HAZY (CLEAR); BILIRUBIN,URINE NEGATIVE (NEGATIVE); COLOR,URINE YELLOW (YELLOW); GLUCOSE, URINE (UA) NEGATIVE (NEGATIVE); KETONES,URINE NEGATIVE (NEGATIVE); LEUKOCYTE ESTERASE ,URINE SMALL (NEGATIVE); NITRATE,URINE NEGATIVE (NEGATIVE); OCCULT BLOOD,URINE MODERATE (NEGATIVE); PH,URINE 6.5 (5.0-8.0); PH,URINE DRUG SCREEN 6.5 (5.0-8.0); PROTEIN,URINE TRACE mg/dL (NEGATIVE); SPECIFIC GRAVITIY, URINE 1.018 (1.003-1.030); UROBILINOGEN,URINE <=1.0 mg/dL (<=1.0)
[2024-11-09 06:57] LABS: ALCOHOL, URINE DRUG SCREEN NEGATIVE (NEGATIVE); AMPHET/METH SCREEN,URINE NEGATIVE (NEGATIVE); BARBITURATE SCREEN, URINE NEGATIVE (NEGATIVE); BENZODIAZEPINES SCREEN,URINE NEGATIVE (NEGATIVE); CANNABINOID SCREEN,URINE NEGATIVE (NEGATIVE); COCAINE SCREEN,URINE NEGATIVE (NEGATIVE); METHADONE SCREEN, URINE NEGATIVE (NEGATIVE); OPIATE SCREEN,URINE NEGATIVE (NEGATIVE); PHENCYCLIDINE SCREEN,URINE NEGATIVE (NEGATIVE)
[2024-11-09 07:12] LABS: BACTERIA,URINE Moderate /HPF (None Seen); SQUAMOUS EPITHELIAL CELL,UR Few /LPF (None Seen); WBC,URINE 0-2 /HPF (0-5)
[2024-11-09] MEDS: AmLODIPine BESYLATE 5 MG TABLET PO SCH (08:05)
[2024-11-09] MEDS: CloNIDine HCL 0.1 MG TABLET PO ONE (17:44)
[2024-11-09] MEDS: CEPHALEXIN MONOHYDRATE 500 MG CAPSULE PO ONE (17:44)
[2024-11-09 22:46] VITALS: O2SAT 97
[2024-11-09] MEDS: ACETAMINOPHEN 325 MG TABLET PO ONE (22:54)
[2024-11-10 01:54] VITALS: BP 141/77; PULSE 93; RESP 18; TEMP 98.7; O2SAT 97
[2024-11-10] MEDS: LEVOTHYROXINE SODIUM 50 MCG TABLET PO SCH (07:01)
[2024-11-10] MEDS: LINACLOTIDE 145 MCG CAPSULE PO SCH (07:04)
[2024-11-10] MEDS: BENZTROPINE MESYLATE 1 MG TABLET PO SCH ×2 (09:41→17:31)
[2024-11-10 10:56] VITALS: BP 148/84; PULSE 94; RESP 18; TEMP 98.8; O2SAT 93
[2024-11-10] MEDS ORDERED: MAGNESIUM HYDROXIDE SUSPENSION 30 ML UDCUP PO PRN (14:45)
[2024-11-10] MEDS ORDERED: DOCUSATE SODIUM 100 MG CAPSULE PO PRN (14:45)
[2024-11-10] MEDS ORDERED: NICOTINE 14 MG/24 HOUR PATCH TD PRN (14:45)
[2024-11-10] MEDS ORDERED: ALBUTEROL SULFATE HFA 90 MCG/PUFF 8 GM INHALER IH PRN (14:45)
[2024-11-10] MEDS ORDERED: MAG HYDROX/ALUMINUM HYD/SIMETH ES 30 ML SUSPENSION UDCUP PO PRN (14:45)
[2024-11-10] MEDS ORDERED: ONDANSETRON 4 MG TABLET PO PRN (14:45)
[2024-11-10] MEDS ORDERED: LOPERAMIDE HCL 2 MG CAPSULE PO PRN (14:45)
[2024-11-10] MEDS ORDERED: CloNIDine HCL 0.1 MG TABLET PO PRN (14:45)
[2024-11-10] MEDS: GuaiFENesin/D-METHORPHAN [SUGAR-FREE] 200-20MG/10 ML SYRUP UDCUP PO PRN (14:51)
[2024-11-10] MEDS: IBUPROFEN 400 MG TABLET PO PRN (14:52)
[2024-11-10] MEDS: DIVALPROEX SODIUM 500 MG DR TABLET PO SCH (17:31)
[2024-11-10 20:00] VITALS: BP 133/72; PULSE 99; RESP 18; TEMP 98.6; O2SAT 93
[2024-11-10] MEDS: QUEtiapine FUMARATE 300 MG TABLET PO SCH (21:32)
[2024-11-11 06:43] VITALS: RESP 18
[2024-11-11] MEDS: ACETAMINOPHEN 325 MG TABLET PO PRN (06:43)
[2024-11-11 07:43] VITALS: BP 158/85; PULSE 62; RESP 18; TEMP 97.2
[2024-11-11 09:58] LABS: BASOPHILS % (AUTO) 0.3 % (0.0-2.0); EOSINOPHILS % (AUTO) 0.9 % (1.0-6.0); HEMATOCRIT 38.7 % (36-46); HEMOGLOBIN 12.5 g/dL (12.0-16.0); LYMPHOCYTES # (AUTO) 1.1 K/uL (1.0-4.8); LYMPHOCYTES % (AUTO) 16.5 % (22.0-44.0); MEAN CORPUSCULAR HEMOGLOBIN 28.6 pg (26.0-34.0); MEAN CORPUSCULAR HGB CONC 32.4 G/dL (31.0-37.0); MEAN CORPUSCULAR VOLUME 88 fL (80-100); MONOCYTES # (AUTO) 0.3 K/uL (0.1-1.0); MONOCYTES % (AUTO) 5.2 % (2.0-9.0); NEUTROPHILS % (AUTO) 77.1 % (40.0-70.0); PLATELET COUNT (AUTO) 159 K/uL (150-450); RED BLOOD CELL COUNT(AUTO) 4.38 MIL/uL (4.00-5.20); RED CELL DISTRIBUTION WIDTH 14.4 % (11.5-14.5); WHITE BLOOD COUNT (AUTO) 6.5 K/uL (4.5-11.0)
[2024-11-11 10:01] VITALS: BP 158/85; PULSE 62; RESP 18; TEMP 97.2; O2SAT 96
[2024-11-11 10:02] LABS: HEMOGLOBIN A1C 5.3 % (3.8-5.6)
[2024-11-11 10:16] LABS: ALBUMIN 3.2 g/dL (3.4-5.0); BILIRUBIN,TOTAL 0.2 mg/dL (0.1-1.0); CALCIUM, TOTAL 9.2 mg/dL (8.8-10.5); CREATININE 1.24 mg/dL (0.60-1.30); POTASSIUM 3.8 mmol/L (3.5-5.1); THYROID STIMULATING HORMONE 9.9 uIU/mL (0.36-3.74); TOTAL PROTEIN, SERUM 7.8 g/dL (6.4-8.2)
[2024-11-11 20:13] VITALS: BP 151/80; PULSE 90; RESP 17; TEMP 97.6; O2SAT 98
[2024-11-12 10:01] VITALS: BP 153/67; PULSE 8; PULSE 80; RESP 16; TEMP 97.4; O2SAT 98
[2024-11-12 11:03] VITALS: RESP 17
[2024-11-12] MEDS: HALOPERIDOL DECANOATE 50 MG/ML VIAL IM SCH (12:25)
[2024-11-12] MEDS: HALOPERIDOL DECANOATE 100 MG/ML VIAL IM ONE (13:43)
[2024-11-12 23:10] VITALS: BP 140/62; PULSE 89; RESP 18; TEMP 98.1; O2SAT 96
[2024-11-13 06:55] VITALS: BP 138/71; PULSE 81; RESP 19; TEMP 97.8; O2SAT 95
[2024-11-13 08:10] VITALS: BP 154/77; PULSE 74; RESP 18; TEMP 98; O2SAT 99
[2024-11-13 09:30] VITALS: BP 134/68; PULSE 70; RESP 17; TEMP 97.7; O2SAT 98
[2024-11-13 10:08] VITALS: BP 180/73; PULSE 75; RESP 18; TEMP 98; O2SAT 95
[2024-11-13 15:22] VITALS: BP 143/75; PULSE 86; RESP 17; TEMP 98.3; O2SAT 96
[2024-11-13 21:49] VITALS: BP 155/63; PULSE 84; RESP 17; TEMP 98.7; O2SAT 94
[2024-11-14 09:43] VITALS: BP 154/65; PULSE 72; RESP 19; TEMP 97.9; O2SAT 97
[2024-11-14 12:50] LABS: CHOL/HDL RATIO 2.8 (3.9-5.7)
[2024-11-14] MEDS: PETROLATUM,WHITE 28 GM JELLY TP PRN (21:27)
[2024-11-14 21:42] VITALS: BP 140/55; PULSE 88; RESP 16; TEMP 98.7; O2SAT 95
[2024-11-15 09:26] VITALS: BP 176/65; PULSE 74; RESP 18; TEMP 97.8
[2024-11-15 10:26] VITALS: BP 176/69; PULSE 71; RESP 17; TEMP 98
[2024-11-15 16:46] VITALS: BP 131/73; PULSE 71; RESP 17; TEMP 98
[2024-11-15 17:46] VITALS: BP 126/71; PULSE 76; RESP 18; TEMP 97.6
[2024-11-15 20:55] VITALS: BP 132/56; PULSE 84; RESP 19; TEMP 98.6; O2SAT 100
[2024-11-16 07:38] LABS: ANION GAP 4 mmol/L (8-16); CALCIUM, TOTAL 8.8 mg/dL (8.8-10.5); CARBON DIOXIDE 31 mmol/L (22-29); CHLORIDE 104 mmol/L (98-107); GLOMERULAR FILTR. RATE CALC > 60 mL/min (>60); GLUCOSE,RANDOM 77 mg/dL (70-110); POTASSIUM 4.8 mmol/L (3.5-5.1); SODIUM SERUM 139 mmol/L (136-145); UREA NITROGEN, BLOOD 34 mg/dL (7-18)
[2024-11-16 08:42] VITALS: BP 155/62; PULSE 66; RESP 18; TEMP 98; O2SAT 98
[2024-11-16] MEDS: NYSTATIN 15 GM POWDER BOTTLE TP SCH (08:43)
[2024-11-16 12:41] VITALS: BP 145/81; PULSE 88; RESP 17; TEMP 97.6; O2SAT 99
[2024-11-16 20:16] LABS: APPEARANCE,URINE CLEAR (CLEAR); BILIRUBIN,URINE NEGATIVE (NEGATIVE); COLOR,URINE COLORLESS (YELLOW); GLUCOSE, URINE (UA) NEGATIVE (NEGATIVE); KETONES,URINE NEGATIVE (NEGATIVE); LEUKOCYTE ESTERASE ,URINE NEGATIVE (NEGATIVE); NITRATE,URINE NEGATIVE (NEGATIVE); OCCULT BLOOD,URINE NEGATIVE (NEGATIVE); PH,URINE 6.5 (5.0-8.0); PH,URINE DRUG SCREEN 6.5 (5.0-8.0); PROTEIN,URINE NEGATIVE (NEGATIVE); SPECIFIC GRAVITIY, URINE 1.008 (1.003-1.030); UROBILINOGEN,URINE <=1.0 mg/dL (<=1.0)
[2024-11-16 20:22] LABS: AMPHET/METH SCREEN,URINE NEGATIVE (NEGATIVE); BARBITURATE SCREEN, URINE NEGATIVE (NEGATIVE); BENZODIAZEPINES SCREEN,URINE NEGATIVE (NEGATIVE); CANNABINOID SCREEN,URINE NEGATIVE (NEGATIVE); COCAINE SCREEN,URINE NEGATIVE (NEGATIVE); METHADONE SCREEN, URINE NEGATIVE (NEGATIVE); OPIATE SCREEN,URINE NEGATIVE (NEGATIVE); PHENCYCLIDINE SCREEN,URINE NEGATIVE (NEGATIVE)
[2024-11-16 20:23] LABS: ALCOHOL, URINE DRUG SCREEN NEGATIVE (NEGATIVE)
[2024-11-16 22:34] VITALS: BP 139/54; PULSE 89; RESP 18; TEMP 97.5; O2SAT 99
[2024-11-17 10:12] VITALS: BP 161/67; PULSE 86; RESP 18; TEMP 97.8; O2SAT 97
[2024-11-17 10:19] VITALS: BP 146/68; PULSE 86; RESP 18; TEMP 97.8; O2SAT 97
[2024-11-17 12:00] VITALS: BP 144/70; RESP 18; O2SAT 98
[2024-11-17 13:10] VITALS: BP 139/68; PULSE 78; RESP 18; TEMP 97.9; O2SAT 98
[2024-11-17] MEDS ORDERED: BENZ-247 PO (16:24)
[2024-11-17] MEDS ORDERED: DIVA-112 PO (16:24)
[2024-11-17] MEDS ORDERED: QUET300T2 PO (16:25)
[2024-11-17] MEDS ORDERED: AMLO-257 PO (16:26)
[2024-11-17] MEDS ORDERED: LINA145C PO (16:27)
[2024-11-17] MEDS ORDERED: LEVO50 PO (16:27)
[2024-11-17] MEDS ORDERED: NYST30CR9 TP (16:28)
[2024-11-17] MEDS ORDERED: HALO50VI29 IM (16:30)
== END 2024-11-17 16:44 | disposition home or self-care (01) | DRG 885 ==
LOC: EMS 17:08 → 3EI 11-09 22:57
PROVIDERS: ADMIT Psychiatry & Neurology Child & Adolescent Psychiatry; ATTEND Psychiatry & Neurology Child & Adolescent Psychiatry
PROC: GZ56ZZZ Individual Psychotherapy, Supportive (ICD-10-PCS; principal; 2024-11-10)
PROC: GZ52ZZZ Individual Psychotherapy, Cognitive (ICD-10-PCS; 2024-11-11)
DX: F29 Unspecified psychosis not due to a substance or known physiological condition (principal); E87.1 Hypo-osmolality and hyponatremia; S00.83XA Contusion of other part of head, initial encounter; J44.9 Chronic obstructive pulmonary disease, unspecified; I10 Essential (primary) hypertension; G20.C Parkinsonism, unspecified; Z20.822 Contact with and (suspected) exposure to COVID-19; E03.9 Hypothyroidism, unspecified; B36.8 Other specified superficial mycoses; G47.00 Insomnia, unspecified; W22.8XXA Striking against or struck by other objects, initial encounter; Y93.89 Activity, other specified; Y92.89 Other specified places as the place of occurrence of the external cause; Y99.8 Other external cause status; Z87.891 Personal history of nicotine dependence; Z87.440 Personal history of urinary (tract) infections; Z90.710 Acquired absence of both cervix and uterus; Z79.899 Other long term (current) drug therapy; Z88.8 Allergy status to other drugs, medicaments and biological substances
CPT/HCPCS: 80048; 80053; 80061; 80164; 80307; 81001; 81003; 83036; 84439; 84443; 85025; 87086; 87420; 87804; 99285; G0480; J1631

== ENCOUNTER 2025-01-16 16:27 | Inpatient (IN) | payer MEDICARE, MEDICAID ==
[~2025-01-16] VITALS: Ht 152.4 cm; Wt 65.8 kg
[~2025-01-16 16:27] MED LIST changes: +HALO50VI29 IM; +NYST30CR9 TP; -QUET300T19 PO; +QUET300T2 PO
[2025-01-16] MEDS ORDERED: ACET-66 PO (17:37)
[2025-01-16] MEDS ORDERED: VITA113O4 TP (17:37)
[2025-01-16] MEDS ORDERED: MULT1TAB67 PO (17:37)
[2025-01-16] MEDS ORDERED: DOCU-412 PO (17:37)
[2025-01-16 17:49] LABS: BASOPHILS % (AUTO) 0.5 % (0.0-2.0); EOSINOPHILS % (AUTO) 1.2 % (1.0-6.0); HEMATOCRIT 36.9 % (36-46); HEMOGLOBIN 11.9 g/dL (12.0-16.0); LYMPHOCYTES % (AUTO) 17.7 % (22.0-44.0); MEAN CORPUSCULAR HEMOGLOBIN 28.3 pg (26.0-34.0); MEAN CORPUSCULAR HGB CONC 32.1 G/dL (31.0-37.0); MEAN CORPUSCULAR VOLUME 88 fL (80-100); MONOCYTES # (AUTO) 0.5 K/uL (0.1-1.0); NEUTROPHILS # (AUTO) 3.8 K/uL (1.8-7.7); NEUTROPHILS % (AUTO) 71.6 % (40.0-70.0); RED BLOOD CELL COUNT(AUTO) 4.18 MIL/uL (4.00-5.20); RED CELL DISTRIBUTION WIDTH 14.7 % (11.5-14.5); WHITE BLOOD COUNT (AUTO) 5.4 K/uL (4.5-11.0)
[2025-01-16 17:55] LABS: ANION GAP 7 mmol/L (8-16); CARBON DIOXIDE 25 mmol/L (22-29); CHLORIDE 97 mmol/L (98-107); CREATININE 0.67 mg/dL (0.60-1.30); GLOMERULAR FILTR. RATE CALC > 60 mL/min (>60); GLUCOSE,RANDOM 101 mg/dL (70-110); POTASSIUM 4.6 mmol/L (3.5-5.1); SODIUM SERUM 129 mmol/L (136-145); UREA NITROGEN, BLOOD 33 mg/dL (7-18)
[2025-01-16 17:57] LABS: ALCOHOL, BLOOD (SERUM) < 3 mg/dL (0-10)
[2025-01-16 18:10] LABS: PLATELET COUNT (AUTO) 234 K/uL (150-450)
[2025-01-16] MEDS: ACETAMINOPHEN 325 MG TABLET PO ONE (18:11)
[2025-01-16 18:45] LABS: COVID AG,FIA SOURCE NASAL SWAB
[2025-01-16 18:52] LABS: AMPHET/METH SCREEN,URINE NEGATIVE (NEGATIVE); APPEARANCE,URINE HAZY (CLEAR); BARBITURATE SCREEN, URINE NEGATIVE (NEGATIVE); BENZODIAZEPINES SCREEN,URINE NEGATIVE (NEGATIVE); BILIRUBIN,URINE NEGATIVE (NEGATIVE); CANNABINOID SCREEN,URINE NEGATIVE (NEGATIVE); COCAINE SCREEN,URINE NEGATIVE (NEGATIVE); COLOR,URINE COLORLESS (YELLOW); GLUCOSE, URINE (UA) NEGATIVE (NEGATIVE); KETONES,URINE NEGATIVE (NEGATIVE); LEUKOCYTE ESTERASE ,URINE MODERATE (NEGATIVE); METHADONE SCREEN, URINE NEGATIVE (NEGATIVE); NITRATE,URINE NEGATIVE (NEGATIVE); OCCULT BLOOD,URINE NEGATIVE (NEGATIVE); OPIATE SCREEN,URINE NEGATIVE (NEGATIVE); PH,URINE 7.5 (5.0-8.0); PH,URINE DRUG SCREEN 7.5 (5.0-8.0); PHENCYCLIDINE SCREEN,URINE NEGATIVE (NEGATIVE); PROTEIN,URINE NEGATIVE (NEGATIVE); SPECIFIC GRAVITIY, URINE 1.003 (1.003-1.030); UROBILINOGEN,URINE <=1.0 mg/dL (<=1.0)
[2025-01-16 18:58] LABS: BACTERIA,URINE Few /HPF (None Seen); RBC,URINE 0-2 /HPF (0-2); SQUAMOUS EPITHELIAL CELL,UR Few /LPF (None Seen)
[2025-01-16 19:04] LABS: ALCOHOL, URINE DRUG SCREEN NEGATIVE (NEGATIVE)
[2025-01-16 19:04] LABS: SARS-COV2 (COVID) ANTIGEN,FIA Negative (Negative)
[2025-01-16 19:20] VITALS: O2SAT 96
[2025-01-16] MEDS: IBUPROFEN 600 MG TABLET PO ONE (19:55)
[2025-01-16] MEDS: HALOPERIDOL LACTATE 5 MG/ML VIAL IM ONE (20:20)
[2025-01-16] MEDS: LORazepam 2 MG/ML VIAL IM ONE (20:20)
[2025-01-16] MEDS: DiphenhydrAMINE HCL 50 MG/ML VIAL IM ONE (20:21)
[2025-01-16] MEDS ORDERED: ZOLPIDEM TARTRATE 10 MG TABLET PO PRN (21:30)
[2025-01-17 03:09] VITALS: RESP 18
[2025-01-17] MEDS ORDERED: PNEUMOCOCCAL VACCINE POLYVALENT 0.5 ML SYRINGE [PPSV23] IM. ONE (05:15)
[2025-01-17] MEDS ORDERED: INFLUENZA VIRUS VACCINE TVS (6MO+) 2024-25/PF 45 MCG/0.5 ML SYRINGE IM. ONE (05:15)
[2025-01-17] MEDS: MULTIVITAMINS, THERAPEUTIC TABLET PO SCH (08:53)
[2025-01-17] MEDS: LORazepam 2 MG TABLET PO PRN (08:53)
[2025-01-17] MEDS: BENZTROPINE MESYLATE 1 MG TABLET PO SCH (08:53)
[2025-01-17] MEDS: AmLODIPine BESYLATE 5 MG TABLET PO SCH (08:53)
[2025-01-17] MEDS: VITAMINS A & D 113 GM OINTMENT TP SCH (08:54)
[2025-01-17] MEDS: DOCUSATE SODIUM 250 MG CAPSULE PO SCH (08:54)
[2025-01-17] MEDS ORDERED: MAG HYDROX/ALUMINUM HYD/SIMETH ES 30 ML SUSPENSION UDCUP PO PRN (10:45)
[2025-01-17] MEDS ORDERED: PROMETHAZINE HCL 25 MG TABLET PO PRN (10:45)
[2025-01-17] MEDS ORDERED: LOPERAMIDE HCL 2 MG CAPSULE PO PRN (10:45)
[2025-01-17] MEDS ORDERED: MAGNESIUM HYDROXIDE SUSPENSION 30 ML UDCUP PO PRN (10:45)
[2025-01-17] MEDS ORDERED: HydrOXYzine PAMOATE 50 MG CAPSULE PO PRN (10:45)
[2025-01-17] MEDS ORDERED: TUBERCULIN, PURIFIED PROTEIN DERIVATIVE 5 TU/0.1 ML SYRINGE ID ONE (10:45)
[2025-01-17] MEDS ORDERED: GuaiFENesin/D-METHORPHAN [SUGAR-FREE] 200-20MG/10 ML SYRUP UDCUP PO PRN (10:45)
[2025-01-17] MEDS: QUEtiapine FUMARATE 25 MG TABLET PO SCH (12:16)
[2025-01-17 16:01] VITALS: BP 170/63; PULSE 79; RESP 18; TEMP 97.5; O2SAT 98
[2025-01-17] MEDS: THIAMINE 100 MG TABLET PO SCH (18:18)
[2025-01-17] MEDS: MELATONIN 5 MG TABLET PO SCH (20:26)
[2025-01-17] MEDS: OLANZapine 10 MG RAPDIS TABLET PO SCH (20:27)
[2025-01-17] MEDS: DIVALPROEX SODIUM 500 MG ER TABLET PO SCH (20:27)
[2025-01-17] MEDS ORDERED: QUEtiapine FUMARATE 100 MG TABLET PO SCH (21:00)
[2025-01-17 21:24] VITALS: BP 125/78; PULSE 91; RESP 17; TEMP 98.2; O2SAT 98
[2025-01-18] MEDS: HALOPERIDOL 5 MG TABLET PO PRN (02:31)
[2025-01-18] MEDS: LEVOTHYROXINE SODIUM 50 MCG TABLET PO SCH (06:46)
[2025-01-18] MEDS: LINACLOTIDE 145 MCG CAPSULE PO SCH (06:46)
[2025-01-18 07:12] LABS: HEMOGLOBIN A1C 5.3 % (3.8-5.6)
[2025-01-18 07:32] LABS: CHOL/HDL RATIO 2.6 (3.9-5.7); FREE T4 (FREE THYROXINE) 0.61 ng/dL (0.76-1.46); THYROID STIMULATING HORMONE 13.29 uIU/mL (0.36-3.74)
[2025-01-18] MEDS: FOLIC ACID 1 MG TABLET PO SCH (08:57)
[2025-01-18] MEDS: MULTIVITAMINS WITH MINERALS, THERAPEUTIC TABLET PO SCH (08:57)
[2025-01-18] MEDS: OLANZapine 5 MG RAPDIS TABLET PO PRN (08:57)
[2025-01-18 08:59] VITALS: BP 177/71; PULSE 72; RESP 18; TEMP 97.1; O2SAT 97
[2025-01-18] MEDS: NITROFURANTOIN MONOHYD/M-CRYST 100 MG CAPSULE [MACROBID] PO SCH (16:16)
[2025-01-18] MEDS: OLANZapine 10 MG RAPDIS TABLET PO SCH (21:16)
[2025-01-18] MEDS: PALIPERIDONE PALMITATE 78 MG/0.5 ML SYRINGE IM ONE (21:50)
[2025-01-18 21:58] VITALS: BP 159/70; PULSE 72; RESP 18; TEMP 97.5; O2SAT 98
[2025-01-19 08:31] VITALS: BP 110/64; PULSE 70; RESP 19; TEMP 97.3; O2SAT 97
[2025-01-19] MEDS: SODIUM CHLORIDE 1 GM TABLET PO SCH (12:27)
[2025-01-19 14:40] VITALS: BP 146/62; PULSE 89; RESP 18; TEMP 97.6; O2SAT 98
[2025-01-19] MEDS: ACETAMINOPHEN 325 MG TABLET PO PRN (14:40)
[2025-01-19 15:50] VITALS: RESP 17
[2025-01-19 20:54] VITALS: BP 128/81; PULSE 101; RESP 18; TEMP 97.5; O2SAT 99
[2025-01-19] MEDS ORDERED: MELA5TAB40 PO (23:06)
[2025-01-19] MEDS ORDERED: OLAN10TA26 PO (23:06)
[2025-01-19] MEDS ORDERED: DIVA-153 PO (23:06)
[2025-01-19] MEDS ORDERED: BENZ-247 PO (23:06)
[2025-01-19] MEDS ORDERED: PALI78DI IM (23:06)
[2025-01-20 08:24] VITALS: BP 130/70; PULSE 83; RESP 18; TEMP 98; O2SAT 96
[2025-01-20 09:55] VITALS: BP 136/71; PULSE 78; RESP 17; TEMP 98
[2025-01-20 10:55] VITALS: BP 129/72; PULSE 1; RESP 17; TEMP 97.2
[2025-01-20] MEDS ORDERED: NITR-104 PO (12:39)
[2025-01-20] MEDS ORDERED: SODI100067 PO (12:41)
[2025-01-20] MEDS ORDERED: [UNRECOGNIZED DRUG - CODE] TP (12:45)
[2025-01-20 16:00] VITALS: BP 121/67; PULSE 78; RESP 17; TEMP 97.1
[2025-01-20 17:00] VITALS: BP 131/71; PULSE 88; RESP 17; TEMP 97.2
[2025-01-20 22:44] VITALS: BP 138/52; PULSE 102; RESP 18; TEMP 98.5; O2SAT 95
[2025-02-15] MEDS ORDERED: PALIPERIDONE PALMITATE 78 MG/0.5 ML SYRINGE IM SCH (09:00)
== END 2025-01-21 12:41 | disposition home or self-care (01) | DRG 885 ==
LOC: EMS 16:36 → 3EC 01-17 00:05 → 3EI 01-18 11:07
PROVIDERS: ADMIT Psychiatry & Neurology Psychiatry; ATTEND Psychiatry & Neurology Psychiatry
PROC: GZHZZZZ Group Psychotherapy (ICD-10-PCS; principal; 2025-01-17)
PROC: GZ51ZZZ Individual Psychotherapy, Behavioral (ICD-10-PCS; 2025-01-17)
DX: F25.9 Schizoaffective disorder, unspecified (principal); I10 Essential (primary) hypertension; E03.9 Hypothyroidism, unspecified; Z20.822 Contact with and (suspected) exposure to COVID-19; G20.A1 Parkinson's disease without dyskinesia, without mention of fluctuations; F32.A Depression, unspecified; J44.9 Chronic obstructive pulmonary disease, unspecified; Z88.8 Allergy status to other drugs, medicaments and biological substances; Z87.891 Personal history of nicotine dependence; Z90.710 Acquired absence of both cervix and uterus; Z87.440 Personal history of urinary (tract) infections
CPT/HCPCS: 80048; 80061; 80307; 81001; 83036; 84439; 84443; 85025; 87086; 99285; G0480; J1200; J1630; J2060

== ENCOUNTER 2025-01-24 13:21 | Inpatient (IN) | payer MEDICARE, MEDICAID ==
[~2025-01-24] VITALS: Ht 165.1 cm; Wt 72.7 kg
[~2025-01-24 13:21] MED LIST changes: -DIVA-112 PO; +DIVA-153 PO; +DOCU-412 PO; -HALO50VI29 IM; +MELA5TAB40 PO; +NITR-104 PO; -NYST30CR9 TP; +OLAN10TA26 PO; +PALI78DI IM; -QUET300T2 PO; +SODI100067 PO; +[UNRECOGNIZED DRUG - CODE] TP
[2025-01-24] MEDS: DiphenhydrAMINE HCL 50 MG/ML VIAL IM ONE ×2 (16:48→21:20)
[2025-01-24] MEDS: LORazepam 2 MG/ML VIAL IM ONE ×2 (16:48→21:20)
[2025-01-24] MEDS: HALOPERIDOL LACTATE 5 MG/ML VIAL IM ONE ×2 (16:48→21:20)
[2025-01-24 18:50] LABS: BASOPHILS % (AUTO) 0.6 % (0.0-2.0); EOSINOPHILS % (AUTO) 0.5 % (1.0-6.0); HEMATOCRIT 35.9 % (36-46); HEMOGLOBIN 11.4 g/dL (12.0-16.0); LYMPHOCYTES # (AUTO) 0.7 K/uL (1.0-4.8); LYMPHOCYTES % (AUTO) 18.7 % (22.0-44.0); MEAN CORPUSCULAR HEMOGLOBIN 27.9 pg (26.0-34.0); MEAN CORPUSCULAR HGB CONC 31.9 G/dL (31.0-37.0); MEAN CORPUSCULAR VOLUME 88 fL (80-100); MONOCYTES # (AUTO) 0.3 K/uL (0.1-1.0); MONOCYTES % (AUTO) 9.4 % (2.0-9.0); NEUTROPHILS # (AUTO) 2.6 K/uL (1.8-7.7); NEUTROPHILS % (AUTO) 70.8 % (40.0-70.0); PLATELET COUNT (AUTO) 199 K/uL (150-450); RED CELL DISTRIBUTION WIDTH 14.9 % (11.5-14.5); WHITE BLOOD COUNT (AUTO) 3.7 K/uL (4.5-11.0)
[2025-01-24 18:59] LABS: COVID AG,FIA SOURCE NASAL SWAB
[2025-01-24 19:10] LABS: ANION GAP 7 mmol/L (8-16); CALCIUM, TOTAL 9.7 mg/dL (8.8-10.5); CARBON DIOXIDE 29 mmol/L (22-29); CHLORIDE 102 mmol/L (98-107); CREATININE 0.72 mg/dL (0.60-1.30); GLOMERULAR FILTR. RATE CALC > 60 mL/min (>60); GLUCOSE,RANDOM 82 mg/dL (70-110); POTASSIUM 3.9 mmol/L (3.5-5.1); SODIUM SERUM 138 mmol/L (136-145); UREA NITROGEN, BLOOD 26 mg/dL (7-18)
[2025-01-24 19:22] LABS: SARS-COV2 (COVID) ANTIGEN,FIA Negative (Negative)
[2025-01-24 19:24] LABS: ALCOHOL, BLOOD (SERUM) < 3 mg/dL (0-10)
[2025-01-24 20:05] LABS: APPEARANCE,URINE HAZY (CLEAR); BILIRUBIN,URINE NEGATIVE (NEGATIVE); COLOR,URINE COLORLESS (YELLOW); GLUCOSE, URINE (UA) NEGATIVE (NEGATIVE); KETONES,URINE NEGATIVE (NEGATIVE); LEUKOCYTE ESTERASE ,URINE LARGE (NEGATIVE); NITRATE,URINE NEGATIVE (NEGATIVE); OCCULT BLOOD,URINE TRACE (NEGATIVE); PH,URINE 7.5 (5.0-8.0); PH,URINE DRUG SCREEN 7.5 (5.0-8.0); PROTEIN,URINE TRACE mg/dL (NEGATIVE); SPECIFIC GRAVITIY, URINE 1.007 (1.003-1.030); UROBILINOGEN,URINE <=1.0 mg/dL (<=1.0)
[2025-01-24 20:11] LABS: ALCOHOL, URINE DRUG SCREEN NEGATIVE (NEGATIVE); AMPHET/METH SCREEN,URINE NEGATIVE (NEGATIVE); BARBITURATE SCREEN, URINE NEGATIVE (NEGATIVE); BENZODIAZEPINES SCREEN,URINE NEGATIVE (NEGATIVE); CANNABINOID SCREEN,URINE NEGATIVE (NEGATIVE); COCAINE SCREEN,URINE NEGATIVE (NEGATIVE); METHADONE SCREEN, URINE NEGATIVE (NEGATIVE); OPIATE SCREEN,URINE NEGATIVE (NEGATIVE); PHENCYCLIDINE SCREEN,URINE NEGATIVE (NEGATIVE)
[2025-01-24 20:26] LABS: BACTERIA,URINE Few /HPF (None Seen); RBC,URINE 0-2 /HPF (0-2); SQUAMOUS EPITHELIAL CELL,UR Rare /LPF (None Seen); WBC,URINE 26-50 /HPF (0-5)
[2025-01-24] MEDS: CefTRIAXone 1 GM/DEXTROSE 50 ML IV ONE (21:19)
[2025-01-24] MEDS ORDERED: ONDANSETRON HCL 4 MG/2 ML VIAL IVP PRN (22:45)
[2025-01-24] MEDS ORDERED: MAGNESIUM HYDROXIDE SUSPENSION 30 ML UDCUP PO PRN (22:45)
[2025-01-24] MEDS ORDERED: HYDROCODONE/ACETAMINOPHEN 5-325 MG TABLET PO PRN (22:45)
[2025-01-24] MEDS ORDERED: BISACODYL 10 MG RECTAL RECTAL SUPPOSITORY PR PRN (22:45)
[2025-01-24] MEDS: HEPARIN SODIUM,PORCINE 5,000 UNITS/ML VIAL SQ SCH (23:04)
[2025-01-24] MEDS: ACETAMINOPHEN 325 MG TABLET PO PRN (23:14)
[2025-01-24] MEDS: ACETAMINOPHEN 325 MG TABLET PO ONE (23:14)
[2025-01-25 02:25] VITALS: BP 160/63; PULSE 88; RESP 18; TEMP 97.3; O2SAT 96
[2025-01-25 03:26] VITALS: BP 148/71; PULSE 87; RESP 18; TEMP 97.8; O2SAT 96
[2025-01-25] MEDS: LINACLOTIDE 145 MCG CAPSULE PO SCH (06:30)
[2025-01-25] MEDS: LEVOTHYROXINE SODIUM 50 MCG TABLET PO SCH (06:39)
[2025-01-25 08:00] VITALS: BP_SYST 117; BP_SYST 146; BP_DIAS 47; BP_DIAS 68; PULSE 74; PULSE 79; RESP 18; TEMP 98; TEMP 98.2; O2SAT 95; O2SAT 97
[2025-01-25] MEDS: AmLODIPine BESYLATE 5 MG TABLET PO SCH (08:30)
[2025-01-25] MEDS: DOCUSATE SODIUM 100 MG CAPSULE PO SCH (08:30)
[2025-01-25] MEDS: PANTOPRAZOLE SODIUM 40 MG DR TABLET PO SCH (08:30)
[2025-01-25] MEDS: BENZTROPINE MESYLATE 1 MG TABLET PO SCH (09:16)
[2025-01-25 15:00] VITALS: BP 154/68; PULSE 78; RESP 19; TEMP 97.9; O2SAT 96
[2025-01-25] MEDS ORDERED: SODIUM CHLORIDE 0.9% 1,000 ML ONE (15:02)
[2025-01-25] MEDS: CefTRIAXone 1 GM/DEXTROSE 50 ML IV SCH (15:55)
[2025-01-25 20:10] VITALS: BP 147/79; PULSE 85; RESP 18; TEMP 98.4; O2SAT 97
[2025-01-25] MEDS: DIVALPROEX SODIUM 500 MG ER TABLET PO SCH (20:41)
[2025-01-25] MEDS: OLANZapine 10 MG RAPDIS TABLET PO SCH (20:42)
[2025-01-26] MEDS: MORPHINE SULFATE 2 MG/ML SYRINGE IVP PRN (00:46)
[2025-01-26 05:09] VITALS: BP 136/69; PULSE 86; RESP 18; TEMP 98; O2SAT 96
[2025-01-26 07:37] VITALS: BP 130/72; PULSE 82; RESP 18; TEMP 97.9; O2SAT 96
[2025-01-26] MEDS: OLANZapine 5 MG TABLET PO SCH (14:58)
[2025-01-26 19:25] VITALS: BP 149/61; PULSE 90; RESP 18; TEMP 97.9; O2SAT 98
[2025-01-27 04:48] VITALS: BP 135/56; PULSE 79; RESP 18; TEMP 98; O2SAT 95
[2025-01-27 08:00] VITALS: BP 152/62; PULSE 82; RESP 16; TEMP 97.7; O2SAT 94
[2025-01-27 20:00] VITALS: BP 152/57; PULSE 99; RESP 18; TEMP 98; O2SAT 95
[2025-01-28 04:18] VITALS: BP 158/76; PULSE 76; RESP 18; TEMP 97.6; O2SAT 97
[2025-01-28 09:28] LABS: COVID AG,FIA SOURCE NASAL SWAB
[2025-01-28 09:48] LABS: SARS-COV2 (COVID) ANTIGEN,FIA Negative (Negative)
== END 2025-01-28 16:25 | DRG 689 ==
LOC: EMS 13:22 → EDH 22:37 → 6S 01-25 02:00 → 4E 01-25 03:00
PROVIDERS: ADMIT Internal Medicine; ATTEND Internal Medicine
PROC: GZ52ZZZ Individual Psychotherapy, Cognitive (ICD-10-PCS; principal; 2025-01-26)
PROC: GZ56ZZZ Individual Psychotherapy, Supportive (ICD-10-PCS; 2025-01-26)
DX: N39.0 Urinary tract infection, site not specified (principal); G93.41 Metabolic encephalopathy; Z20.822 Contact with and (suspected) exposure to COVID-19; E03.9 Hypothyroidism, unspecified; F31.9 Bipolar disorder, unspecified; I10 Essential (primary) hypertension; G20.A1 Parkinson's disease without dyskinesia, without mention of fluctuations; J44.9 Chronic obstructive pulmonary disease, unspecified; G47.00 Insomnia, unspecified; Z79.899 Other long term (current) drug therapy; Z87.891 Personal history of nicotine dependence; Z90.710 Acquired absence of both cervix and uterus; Z91.148 Patient's other noncompliance with medication regimen for other reason
CPT/HCPCS: 80048; 80307; 81001; 85025; 87077; 87086; 87186; 96365; 96372; 99285; G0378; G0480; J0696; J1200; J1630; J1644; J2060; J2270; J7030

== ENCOUNTER 2025-01-28 08:29 | Inpatient (IN) | payer MEDICARE, MEDICAID ==
[~2025-01-28] VITALS: Ht 165.1 cm; Wt 72.6 kg
[2025-01-28 18:22] VITALS: BP 146/74; PULSE 82; RESP 18; TEMP 98; O2SAT 97
[2025-01-28 23:23] VITALS: BP 152/87; PULSE 88; RESP 18; TEMP 98.5; O2SAT 95
[2025-01-29] MEDS: LORazepam 1 MG TABLET PO PRN (00:47)
[2025-01-29] MEDS: LINACLOTIDE 145 MCG CAPSULE PO SCH (06:39)
[2025-01-29] MEDS: LEVOTHYROXINE SODIUM 50 MCG TABLET PO SCH (06:48)
[2025-01-29] MEDS ORDERED: LINACLOTIDE 145 MCG CAPSULE PO SCH (07:30)
[2025-01-29 08:00] VITALS: BP 99/61; PULSE 78; RESP 17; TEMP 97.8; O2SAT 99
[2025-01-29 08:14] LABS: HEMOGLOBIN A1C 5.1 % (3.8-5.6)
[2025-01-29 08:20] LABS: CHOL/HDL RATIO 2.6 (3.9-5.7)
[2025-01-29] MEDS ORDERED: DOCUSATE SODIUM 100 MG CAPSULE PO PRN (09:45)
[2025-01-29] MEDS ORDERED: NICOTINE 14 MG/24 HOUR PATCH TD PRN (09:45)
[2025-01-29] MEDS ORDERED: MAGNESIUM HYDROXIDE SUSPENSION 30 ML UDCUP PO PRN (09:45)
[2025-01-29] MEDS ORDERED: GuaiFENesin/D-METHORPHAN [SUGAR-FREE] 200-20MG/10 ML SYRUP UDCUP PO PRN (09:45)
[2025-01-29] MEDS ORDERED: ONDANSETRON 4 MG TABLET PO PRN (09:45)
[2025-01-29] MEDS ORDERED: PETROLATUM,WHITE 28 GM JELLY TP PRN (09:45)
[2025-01-29] MEDS ORDERED: LOPERAMIDE HCL 2 MG CAPSULE PO PRN (09:45)
[2025-01-29] MEDS ORDERED: MAG HYDROX/ALUMINUM HYD/SIMETH ES 30 ML SUSPENSION UDCUP PO PRN (09:45)
[2025-01-29] MEDS ORDERED: ALBUTEROL SULFATE HFA 90 MCG/PUFF 8 GM INHALER IH PRN (09:45)
[2025-01-29] MEDS: SODIUM CHLORIDE 1 GM TABLET PO SCH (11:05)
[2025-01-29] MEDS: AmLODIPine BESYLATE 5 MG TABLET PO SCH (11:06)
[2025-01-29] MEDS: BENZTROPINE MESYLATE 1 MG TABLET PO SCH (11:06)
[2025-01-29] MEDS: DOCUSATE SODIUM 250 MG CAPSULE PO SCH (11:06)
[2025-01-29] MEDS: OLANZapine 10 MG TABLET PO SCH (11:06)
[2025-01-29] MEDS: NITROFURANTOIN MONOHYD/M-CRYST 100 MG CAPSULE [MACROBID] PO SCH (17:48)
[2025-01-29] MEDS: OLANZapine 7.5 MG TABLET PO SCH (21:24)
[2025-01-29 21:26] VITALS: BP 145/61; PULSE 89; RESP 16; TEMP 97.5; O2SAT 95
[2025-01-29 22:47] VITALS: BP 145/61; PULSE 89; RESP 18; TEMP 97.5
[2025-01-29] MEDS: IBUPROFEN 400 MG TABLET PO PRN (22:47)
[2025-01-29 23:47] VITALS: RESP 18
[2025-01-30 08:51] LABS: ANION GAP 4 mmol/L (8-16); CALCIUM, TOTAL 9.4 mg/dL (8.8-10.5); CARBON DIOXIDE 30 mmol/L (22-29); CHLORIDE 102 mmol/L (98-107); CREATININE 0.82 mg/dL (0.60-1.30); GLOMERULAR FILTR. RATE CALC > 60 mL/min (>60); GLUCOSE,RANDOM 82 mg/dL (70-110); POTASSIUM 4.4 mmol/L (3.5-5.1); SODIUM SERUM 136 mmol/L (136-145); THYROID STIMULATING HORMONE 7.45 uIU/mL (0.36-3.74); UREA NITROGEN, BLOOD 47 mg/dL (7-18)
[2025-01-30 09:00] VITALS: BP 149/76; PULSE 81; RESP 17; TEMP 97.7; O2SAT 95
[2025-01-30] MEDS: QUEtiapine FUMARATE 100 MG TABLET PO PRN (12:25)
[2025-01-30] MEDS: ACETAMINOPHEN 325 MG TABLET PO PRN (18:09)
[2025-01-30 22:32] VITALS: RESP 18
[2025-01-31 08:00] VITALS: BP 129/54; PULSE 101; RESP 17; TEMP 98.1; O2SAT 97
[2025-01-31 10:16] VITALS: BP 144/56
[2025-01-31 20:34] VITALS: BP 113/59; PULSE 92; RESP 17; TEMP 97.2; O2SAT 95
[2025-02-01 08:00] VITALS: BP 151/80; PULSE 79; RESP 18; TEMP 96.8; O2SAT 97
[2025-02-01 14:29] VITALS: BP 146/74; PULSE 74; RESP 18; TEMP 97.4; O2SAT 98
[2025-02-01 20:24] VITALS: BP 120/60; PULSE 96; RESP 18; TEMP 97.3; O2SAT 95
[2025-02-02 07:49] LABS: APPEARANCE,URINE CLEAR (CLEAR); BILIRUBIN,URINE NEGATIVE (NEGATIVE); COLOR,URINE COLORLESS (YELLOW); GLUCOSE, URINE (UA) NEGATIVE (NEGATIVE); KETONES,URINE NEGATIVE (NEGATIVE); LEUKOCYTE ESTERASE ,URINE SMALL (NEGATIVE); NITRATE,URINE NEGATIVE (NEGATIVE); OCCULT BLOOD,URINE NEGATIVE (NEGATIVE); PROTEIN,URINE NEGATIVE (NEGATIVE); SPECIFIC GRAVITIY, URINE 1.008 (1.003-1.030); UROBILINOGEN,URINE <=1.0 mg/dL (<=1.0)
[2025-02-02 08:04] LABS: RBC,URINE None Seen /HPF (0-2)
[2025-02-02 08:05] LABS: BACTERIA,URINE None Seen /HPF (None Seen)
[2025-02-02 08:30] VITALS: BP 147/64; PULSE 84; RESP 18; TEMP 97.2; O2SAT 97
[2025-02-02 21:48] VITALS: BP 139/63; PULSE 89; RESP 18; TEMP 97; O2SAT 96
[2025-02-03 09:05] VITALS: BP 171/68; PULSE 74; RESP 18; TEMP 97.6; O2SAT 97
[2025-02-03 11:12] VITALS: BP 171/68; PULSE 84; RESP 18; TEMP 97.6; O2SAT 97
[2025-02-03 17:12] VITALS: BP 145/78; PULSE 75; RESP 20; TEMP 97; O2SAT 96
[2025-02-03 20:26] VITALS: BP 134/63; PULSE 85; RESP 20; TEMP 97.3; O2SAT 96
[2025-02-04] MEDS: LEVOTHYROXINE SODIUM 25 MCG TABLET PO ONE (07:21)
[2025-02-04 11:41] VITALS: BP 162/79; PULSE 88; RESP 17; TEMP 97.5; O2SAT 97
[2025-02-04 18:05] VITALS: BP 142/71; PULSE 84; RESP 18; O2SAT 100
[2025-02-04 20:36] VITALS: BP 153/68; PULSE 83; RESP 18; TEMP 97.6; O2SAT 95
[2025-02-04 21:17] VITALS: BP 145/60; PULSE 80; RESP 18; TEMP 97.5; O2SAT 96
[2025-02-05] MEDS: LEVOTHYROXINE SODIUM 75 MCG TABLET PO SCH (06:40)
[2025-02-05 09:00] VITALS: BP 177/74; PULSE 71; RESP 18; TEMP 97.4; O2SAT 95
[2025-02-05 17:05] VITALS: BP 146/69; PULSE 71; RESP 17; TEMP 97.6
[2025-02-05 18:04] VITALS: BP 141/78; PULSE 76; RESP 17; TEMP 98
[2025-02-05 22:21] VITALS: BP 133/53; PULSE 83; RESP 20; TEMP 97.5; O2SAT 97
[2025-02-06 08:30] VITALS: BP 123/7; PULSE 69; RESP 19; TEMP 96.3
[2025-02-06 20:37] VITALS: BP 145/65; PULSE 95; RESP 16; TEMP 97.4; O2SAT 92
[2025-02-07 06:26] VITALS: BP 148/58; PULSE 69; RESP 18; TEMP 98; O2SAT 95
[2025-02-07 08:53] VITALS: BP 180/65; PULSE 80; RESP 18; TEMP 98.1; O2SAT 98
[2025-02-07] MEDS: CloNIDine HCL 0.1 MG TABLET PO PRN (08:55)
[2025-02-07 13:12] VITALS: BP 123/52
[2025-02-07 21:11] VITALS: BP 139/60; PULSE 77; RESP 17; TEMP 97.5; O2SAT 96
[2025-02-08 00:55] VITALS: RESP 18
[2025-02-08 01:58] VITALS: RESP 18
[2025-02-08 08:06] VITALS: BP 99/86; PULSE 74; RESP 19; TEMP 98; O2SAT 99
[2025-02-08 08:29] VITALS: BP 150/61; PULSE 68; RESP 16; TEMP 98; O2SAT 95
[2025-02-08] MEDS ORDERED: OLAN5TAB52 PO (14:40)
[2025-02-08] MEDS ORDERED: OLAN7.5T22 PO (14:40)
[2025-02-08] MEDS ORDERED: LEVO50 PO (16:01)
== END 2025-02-08 19:47 | disposition home or self-care (01) | DRG 885 ==
LOC: 3EI 22:07
PROVIDERS: ADMIT Psychiatry & Neurology Child & Adolescent Psychiatry; ATTEND Psychiatry & Neurology Child & Adolescent Psychiatry
PROC: GZHZZZZ Group Psychotherapy (ICD-10-PCS; principal; 2025-01-29)
PROC: GZ52ZZZ Individual Psychotherapy, Cognitive (ICD-10-PCS; 2025-01-29)
DX: F31.5 Bipolar disorder, current episode depressed, severe, with psychotic features (principal); F02.82 Dementia in other diseases classified elsewhere, unspecified severity, with psychotic disturbance; F02.83 Dementia in other diseases classified elsewhere, unspecified severity, with mood disturbance; F02.818 Dementia in other diseases classified elsewhere, unspecified severity, with other behavioral disturbance; J44.9 Chronic obstructive pulmonary disease, unspecified; E03.9 Hypothyroidism, unspecified; I10 Essential (primary) hypertension; G20.A1 Parkinson's disease without dyskinesia, without mention of fluctuations; E78.5 Hyperlipidemia, unspecified; F41.9 Anxiety disorder, unspecified; G47.00 Insomnia, unspecified
CPT/HCPCS: 80048; 80061; 81001; 83036; 84439; 84443; 87081; 92610

== ENCOUNTER 2025-04-18 17:35 | Inpatient (IN) | payer MEDICARE, MEDICAID ==
[~2025-04-18] VITALS: Ht 160 cm; Wt 59.1 kg
[~2025-04-18 17:35] MED LIST changes: -DIVA-153 PO; -MELA5TAB40 PO; -NITR-104 PO; -OLAN10TA26 PO; +OLAN5TAB52 PO; +OLAN7.5T22 PO; -PALI78DI IM; -SODI100067 PO; -[UNRECOGNIZED DRUG - CODE] TP
[2025-04-18 18:11] LABS: PLATELET COUNT (AUTO) 320 K/uL (150-450); RED BLOOD CELL COUNT(AUTO) 4.23 MIL/uL (4.00-5.20); RED CELL DISTRIBUTION WIDTH 14.3 % (11.5-14.5); WHITE BLOOD COUNT (AUTO) 4.3 K/uL (4.5-11.0)
[2025-04-18 18:18] LABS: CALCIUM, TOTAL 9.2 mg/dL (8.8-10.5); CREATININE 0.94 mg/dL (0.60-1.30); GLOMERULAR FILTR. RATE CALC 58.0 mL/min (>60); GLUCOSE,RANDOM 96.0 mg/dL (70-110); SODIUM SERUM 133.0 mmol/L (136-145); UREA NITROGEN, BLOOD 47.0 mg/dL (7-18)
[2025-04-18 18:23] LABS: COVID AG,FIA SOURCE NASAL SWAB
[2025-04-18 18:27] LABS: APPEARANCE,URINE HAZY (CLEAR); GLUCOSE, URINE (UA) NEGATIVE (NEGATIVE); LEUKOCYTE ESTERASE ,URINE LARGE (NEGATIVE); NITRATE,URINE NEGATIVE (NEGATIVE); OCCULT BLOOD,URINE TRACE (NEGATIVE); PH,URINE DRUG SCREEN 6.0 (5.0-8.0); SPECIFIC GRAVITIY, URINE 1.007 (1.003-1.030)
[2025-04-18 18:45] LABS: SARS-COV2 (COVID) ANTIGEN,FIA Negative (Negative)
[2025-04-18 19:01] LABS: AMPHET/METH SCREEN,URINE NEGATIVE (NEGATIVE); BARBITURATE SCREEN, URINE NEGATIVE (NEGATIVE); CANNABINOID SCREEN,URINE NEGATIVE (NEGATIVE); COCAINE SCREEN,URINE NEGATIVE (NEGATIVE); METHADONE SCREEN, URINE NEGATIVE (NEGATIVE)
[2025-04-18 19:05] LABS: ALCOHOL, URINE DRUG SCREEN NEGATIVE (NEGATIVE)
[2025-04-18 19:09] LABS: SQUAMOUS EPITHELIAL CELL,UR Few /LPF (None Seen)
[2025-04-18] MEDS: CefTRIAXone 1 GM/DEXTROSE 50 ML IV ONE (19:40)
[2025-04-18] MEDS ORDERED: ACETAMINOPHEN 650 MG RECTAL SUPPOSITORY PR ONE (20:00)
[2025-04-18] MEDS ORDERED: ACETAMINOPHEN 325 MG TABLET ONE (20:03)
[2025-04-18] MEDS: ACETAMINOPHEN 325 MG TABLET PO ONE (20:05)
[2025-04-18] MEDS ORDERED: ONDANSETRON HCL 4 MG/2 ML VIAL IVP PRN (20:15)
[2025-04-18] MEDS ORDERED: LEVO75 PO (20:31)
[2025-04-18] MEDS: RINGERS SOLUTION,LACTATED 1,000 ML IV SCH (21:00)
[2025-04-18] MEDS: BENZTROPINE MESYLATE 1 MG TABLET PO SCH (21:01)
[2025-04-18] MEDS: DOCUSATE SODIUM 100 MG CAPSULE PO SCH (21:01)
[2025-04-18] MEDS: OLANZapine 7.5 MG TABLET PO SCH (21:01)
[2025-04-18] MEDS: DOCUSATE SODIUM 250 MG CAPSULE PO SCH (21:04)
[2025-04-18 22:42] VITALS: BP 144/66; PULSE 88; RESP 20; TEMP 98.4; O2SAT 96
[2025-04-18] MEDS: HEPARIN SODIUM,PORCINE 5,000 UNITS/ML VIAL SQ SCH (23:19)
[2025-04-19] MEDS: ACETAMINOPHEN 325 MG TABLET PO PRN (00:58)
[2025-04-19 03:54] VITALS: BP 153/58; PULSE 85; RESP 20; TEMP 98.2; O2SAT 93
[2025-04-19] MEDS: LEVOTHYROXINE SODIUM 75 MCG TABLET PO SCH (05:56)
[2025-04-19] MEDS: LINACLOTIDE 145 MCG CAPSULE PO SCH (06:36)
[2025-04-19 07:09] LABS: PLATELET COUNT (AUTO) 338 K/uL (150-450); RED BLOOD CELL COUNT(AUTO) 4.23 MIL/uL (4.00-5.20); RED CELL DISTRIBUTION WIDTH 14.0 % (11.5-14.5); WHITE BLOOD COUNT (AUTO) 3.0 K/uL (4.5-11.0)
[2025-04-19 07:25] LABS: CREATININE 0.83 mg/dL (0.60-1.30); GLUCOSE,RANDOM 88 mg/dL (70-110); SODIUM SERUM 143 mmol/L (136-145); UREA NITROGEN, BLOOD 33 mg/dL (7-18)
[2025-04-19 07:26] LABS: CALCIUM, TOTAL 9.7 mg/dL (8.8-10.5); GLOMERULAR FILTR. RATE CALC > 60 mL/min (>60)
[2025-04-19 09:48] VITALS: BP 121/69; PULSE 66; RESP 19; TEMP 98; O2SAT 95
[2025-04-19 15:00] VITALS: BP 148/70; PULSE 90; RESP 19; TEMP 98.1; O2SAT 98
[2025-04-19 19:00] VITALS: BP 142/70; PULSE 97; RESP 18; TEMP 98.1; O2SAT 95
[2025-04-19] MEDS: PALIPERIDONE PALMITATE 78 MG/0.5 ML SYRINGE IM ONE (19:08)
[2025-04-19] MEDS ORDERED: SODIUM CHLORIDE 0.9% 500 ML IV ONE (19:41)
[2025-04-19] MEDS: CefTRIAXone 1 GM/DEXTROSE 50 ML IV SCH (19:45)
[2025-04-19] MEDS: DIVALPROEX SODIUM 500 MG ER TABLET PO SCH (20:10)
[2025-04-20 05:30] VITALS: BP 188/60; PULSE 80
[2025-04-20 06:22] VITALS: BP 160/88; PULSE 79; RESP 18; TEMP 98.2; O2SAT 97
[2025-04-20 09:08] VITALS: BP 164/67; PULSE 81; RESP 18; TEMP 98.2; O2SAT 99
[2025-04-20] MEDS ORDERED: SODIUM CHLORIDE 0.9% 0 ML IV ONE (13:11)
[2025-04-20] MEDS: AZITHROMYCIN 500 MG/NS 250 ML IV SCH (13:15)
[2025-04-20 15:43] VITALS: BP 156/60; PULSE 86; RESP 18; TEMP 98.1; O2SAT 95
[2025-04-20 19:36] VITALS: BP 159/84; PULSE 92; RESP 18; TEMP 98.1; O2SAT 96
[2025-04-21 04:59] VITALS: BP 159/67; PULSE 75; RESP 18; TEMP 98.4; O2SAT 97
[2025-04-21] MEDS: GuaiFENesin/D-METHORPHAN [SUGAR-FREE] 200-20MG/10 ML SYRUP UDCUP PO PRN (06:57)
[2025-04-21 09:30] VITALS: BP 147/62; PULSE 76; RESP 20; TEMP 98; O2SAT 98
[2025-04-21] MEDS ORDERED: DIVA-153 PO (12:53)
[2025-04-21] MEDS ORDERED: LEVO-72 PO (12:53)
[2025-04-21 20:00] VITALS: BP 142/72; PULSE 78; RESP 18; TEMP 98.2; O2SAT 98
[2025-04-22 08:19] VITALS: BP 186/72; PULSE 78; RESP 18; TEMP 97.2; O2SAT 94
[2025-04-22 13:48] VITALS: BP 165/59; PULSE 86
[2025-04-22 15:54] VITALS: BP 155/75; PULSE 84; RESP 18; TEMP 98.8; O2SAT 100
[2025-04-22 19:26] VITALS: BP 154/61; PULSE 97; RESP 20; TEMP 98.2; O2SAT 96
[2025-05-17] MEDS ORDERED: PALIPERIDONE PALMITATE 78 MG/0.5 ML SYRINGE IM SCH (09:00)
== END 2025-04-22 23:25 | disposition home or self-care (01) | DRG 689 ==
LOC: EMS 17:35 → EDH 20:09 → 6S 22:29
PROVIDERS: ADMIT Internal Medicine; ATTEND Internal Medicine
DX: N39.0 Urinary tract infection, site not specified (principal); G93.41 Metabolic encephalopathy; E87.1 Hypo-osmolality and hyponatremia; G20.A1 Parkinson's disease without dyskinesia, without mention of fluctuations; F25.9 Schizoaffective disorder, unspecified; I10 Essential (primary) hypertension; R79.89 Other specified abnormal findings of blood chemistry; E03.9 Hypothyroidism, unspecified; Z20.822 Contact with and (suspected) exposure to COVID-19; J44.9 Chronic obstructive pulmonary disease, unspecified; Z79.899 Other long term (current) drug therapy; Z90.710 Acquired absence of both cervix and uterus; Z88.8 Allergy status to other drugs, medicaments and biological substances
CPT/HCPCS: 71045; 80048; 80307; 81001; 83735; 84443; 85025; 87077; 87086; 87186; 99285; G0480; J0456; J0696; J1644; J7040; J7120; 36415-L1; 36415-TC

== ENCOUNTER 2025-08-07 20:21 | Inpatient (IN) | payer MEDICARE, MEDICAID ==
[~2025-08-07] VITALS: Ht 162.6 cm; Wt 75.3 kg
[~2025-08-07 20:21] MED LIST changes: +DIVA-153 PO; +LEVO-72 PO; -LEVO50 PO; +LEVO75 PO
[2025-08-07 23:02] LABS: PLATELET COUNT (AUTO) 185 K/uL (150-450); RED BLOOD CELL COUNT(AUTO) 4.15 MIL/uL (4.00-5.20); RED CELL DISTRIBUTION WIDTH 15.1 % (11.5-14.5); WHITE BLOOD COUNT (AUTO) 5.3 K/uL (4.5-11.0)
[2025-08-07 23:12] LABS: CALCIUM, TOTAL 9.4 mg/dL (8.8-10.5); CREATININE 0.72 mg/dL (0.60-1.30); GLOMERULAR FILTR. RATE CALC > 60 mL/min (>60); GLUCOSE,RANDOM 99 mg/dL (70-110); SODIUM SERUM 136 mmol/L (136-145); UREA NITROGEN, BLOOD 49 mg/dL (7-18)
[2025-08-07 23:21] LABS: ASPARTATE AMINOTRANSFERASE 20 U/L (15-37); TOTAL PROTEIN, SERUM 8.2 g/dL (6.4-8.2)
[2025-08-07 23:22] LABS: ALCOHOL, BLOOD (SERUM) < 3 mg/dL (0-10)
[2025-08-08 03:11] LABS: COVID AG,FIA SOURCE NASAL SWAB
[2025-08-08] MEDS: LORazepam 2 MG/ML VIAL IM ONE (03:18)
[2025-08-08 03:31] LABS: SARS-COV2 (COVID) ANTIGEN,FIA Negative (Negative)
[2025-08-08 10:58] VITALS: O2SAT 97
[2025-08-08] MEDS: OLANZapine 5 MG RAPDIS TABLET PO PRN (12:21)
[2025-08-08] MEDS ORDERED: DOCUSATE SODIUM 100 MG CAPSULE PO ONE (12:45)
[2025-08-08] MEDS: ACETAMINOPHEN 325 MG TABLET PO ONE (13:16)
[2025-08-08] MEDS: MAGNESIUM CITRATE [LEMON] 300 ML ORAL SOLUTION PO ONE (13:33)
[2025-08-08 15:48] VITALS: BP 174/60; PULSE 77; RESP 18; TEMP 98.6; O2SAT 77
[2025-08-08] MEDS ORDERED: MAG HYDROX/ALUMINUM HYD/SIMETH ES 30 ML SUSPENSION UDCUP PO PRN (17:30)
[2025-08-08] MEDS ORDERED: TUBERCULIN, PURIFIED PROTEIN DERIVATIVE 5 TU/0.1 ML SYRINGE ID ONE (17:30)
[2025-08-08] MEDS ORDERED: LOPERAMIDE HCL 2 MG CAPSULE PO PRN (17:30)
[2025-08-08] MEDS ORDERED: PROMETHAZINE HCL 25 MG TABLET PO PRN (17:30)
[2025-08-08] MEDS ORDERED: MAGNESIUM HYDROXIDE SUSPENSION 30 ML UDCUP PO PRN (17:30)
[2025-08-08] MEDS ORDERED: INFLUENZA VIRUS VACCINE TVS (6MO+) 2025-26/PF 45 MCG/0.5 ML SYRINGE IM. ONE (18:45)
[2025-08-08 20:30] VITALS: RESP 20
[2025-08-08] MEDS: DOCUSATE SODIUM 250 MG CAPSULE PO SCH (21:03)
[2025-08-08] MEDS: THIAMINE 100 MG TABLET PO SCH (21:04)
[2025-08-08] MEDS: DIVALPROEX SODIUM 500 MG ER TABLET PO SCH (21:05)
[2025-08-08] MEDS: MELATONIN 5 MG TABLET PO SCH (21:05)
[2025-08-08] MEDS: OLANZapine 10 MG RAPDIS TABLET PO SCH (21:06)
[2025-08-09] MEDS: LEVOTHYROXINE SODIUM 75 MCG TABLET PO SCH (06:37)
[2025-08-09] MEDS: LINACLOTIDE 145 MCG CAPSULE PO SCH (06:37)
[2025-08-09 07:46] LABS: CHOL/HDL RATIO 2.4 (3.9-5.7); LDL CHOL (CALC.) 96.0 mg/dL (0-130)
[2025-08-09] MEDS: FOLIC ACID 1 MG TABLET PO SCH (09:07)
[2025-08-09] MEDS: MULTIVITAMINS WITH MINERALS, THERAPEUTIC TABLET PO SCH (09:08)
[2025-08-09 11:31] VITALS: BP 146/76; PULSE 97; RESP 18; TEMP 98; O2SAT 97
[2025-08-09 20:28] VITALS: BP 130/70; PULSE 96; RESP 18; TEMP 97.4; O2SAT 97
[2025-08-10 09:38] VITALS: BP 150/73; PULSE 93; RESP 18; TEMP 97.8; O2SAT 98
[2025-08-10 20:12] VITALS: BP 134/86; PULSE 100; RESP 18; TEMP 97.9; O2SAT 94
[2025-08-10] MEDS: OLANZapine 10 MG RAPDIS TABLET PO SCH (22:07)
[2025-08-11 09:27] VITALS: BP 118/67; PULSE 87; RESP 19; TEMP 97.5; O2SAT 96
[2025-08-11 20:00] VITALS: BP 150/74; PULSE 105; RESP 18; TEMP 98.4; O2SAT 93
[2025-08-11] MEDS: ACETAMINOPHEN 325 MG TABLET PO PRN (20:37)
[2025-08-12] MEDS: PALIPERIDONE PALMITATE 156 MG/ML SYRINGE IM ONE (09:00)
[2025-08-12] MEDS: PALIPERIDONE PALMITATE 234 MG/1.5 ML SYRINGE IM ONE (10:08)
[2025-08-12 20:05] VITALS: BP 158/54; PULSE 104; RESP 18; TEMP 98.8; O2SAT 94
[2025-08-13] MEDS: GuaiFENesin/D-METHORPHAN [SUGAR-FREE] 200-20MG/10 ML SYRUP UDCUP PO PRN (06:41)
[2025-08-13 10:26] VITALS: BP 136/71; PULSE 100; RESP 18; TEMP 97.6; O2SAT 98
[2025-08-13] MEDS: AZITHROMYCIN 500 MG TABLET PO ONE (14:18)
[2025-08-13 20:50] VITALS: BP_SYST 156; BP_SYST 179; BP_DIAS 55; BP_DIAS 58; PULSE 106; RESP 18; TEMP 98.1; O2SAT 96
[2025-08-13 21:53] VITALS: RESP 18
[2025-08-14] MEDS: AZITHROMYCIN 250 MG TABLET PO SCH (09:27)
[2025-08-14 09:29] VITALS: BP 142/45; PULSE 77; RESP 18; TEMP 98.1
[2025-08-14 09:41] VITALS: BP 149/71; PULSE 102; RESP 17; TEMP 97.3; O2SAT 95
[2025-08-14 10:29] VITALS: BP 156/77; PULSE 101; RESP 18; TEMP 98.1
[2025-08-14 20:25] VITALS: BP 148/54; PULSE 93; RESP 18; TEMP 98.8; O2SAT 95
[2025-08-14] MEDS: OLANZapine 10 MG RAPDIS TABLET PO SCH (20:28)
[2025-08-14 21:28] VITALS: RESP 18
[2025-08-15 09:50] VITALS: BP 138/65; PULSE 89; RESP 18; TEMP 97; O2SAT 96
[2025-08-15 20:00] VITALS: BP 143/50; PULSE 95; RESP 18; TEMP 97.5; O2SAT 97
[2025-08-16 12:08] VITALS: BP 165/72; PULSE 77; RESP 18; TEMP 97.2; O2SAT 94
[2025-08-16 20:00] VITALS: BP 110/72; PULSE 100; RESP 18; TEMP 97.5; O2SAT 97
[2025-08-16] MEDS ORDERED: MELA5TAB40 PO (20:05)
[2025-08-16] MEDS ORDERED: DIVA-153 PO (20:05)
[2025-08-16] MEDS ORDERED: OLAN10TA26 PO (20:05)
[2025-08-17 08:40] VITALS: BP 153/74; PULSE 81; RESP 18; TEMP 97.6; O2SAT 96
[2025-08-17 08:43] VITALS: BP 153/74; PULSE 81; RESP 18; TEMP 97.6; O2SAT 96
[2025-08-17 20:00] VITALS: BP 140/99; PULSE 100; RESP 18; TEMP 97.5; O2SAT 97
[2025-08-18 08:47] VITALS: BP 157/62; PULSE 85; RESP 18; TEMP 98.3; O2SAT 96
== END 2025-08-18 19:15 | disposition home or self-care (01) | DRG 885 ==
LOC: EMS 20:21 → EDH 08-08 12:45 → 3EX 08-08 20:00
PROVIDERS: ADMIT Psychiatry & Neurology Psychiatry; ATTEND Psychiatry & Neurology Psychiatry
PROC: GZHZZZZ Group Psychotherapy (ICD-10-PCS; principal; 2025-08-08)
PROC: GZ51ZZZ Individual Psychotherapy, Behavioral (ICD-10-PCS; 2025-08-08)
DX: F25.0 Schizoaffective disorder, bipolar type (principal); E03.9 Hypothyroidism, unspecified; G20.A1 Parkinson's disease without dyskinesia, without mention of fluctuations; J44.9 Chronic obstructive pulmonary disease, unspecified; Z20.822 Contact with and (suspected) exposure to COVID-19; I10 Essential (primary) hypertension; F02.80 Dementia in other diseases classified elsewhere, unspecified severity, without behavioral disturbance, psychotic disturbance, mood disturbance, and anxiety; E78.00 Pure hypercholesterolemia, unspecified; Z87.891 Personal history of nicotine dependence; Z87.440 Personal history of urinary (tract) infections; Z90.710 Acquired absence of both cervix and uterus; Z88.8 Allergy status to other drugs, medicaments and biological substances; Z91.199 Patient's noncompliance with other medical treatment and regimen due to unspecified reason
CPT/HCPCS: 80048; 80061; 80076; 80164; 83036; 84439; 84443; 85025; 86592; 87081; 99285; G0378; G0480; J1200; J1630; J2060